=== PATIENT | male | born 1945 | race Hispanic/Latino ===

== ENCOUNTER 2017-05-21 01:18 | Inpatient (IN) | payer MEDICARE ==
[~2017-05-21] VITALS: Ht 162.6 cm; Wt 89.1 kg
[2017-05-21] MEDS ORDERED: ONDANSETRON HCL INJ 2 MG/ML VIAL IV STA (01:50)
[2017-05-21] MEDS ORDERED: PANTOPRAZOLE 40 MG 10ML VIAL IV STA (01:50)
[2017-05-21] MEDS ORDERED: SODIUM CHLORIDE 0.9% 1000ML 1,000 ML IV STA ×2 (01:50→03:25)
[2017-05-21] MEDS ORDERED: DIATRIZOATE MEGL/DIATRIZOA SOD 30 ML BTL PO ONE (02:02)
[2017-05-21 02:03] LABS: BASOPHILS # (AUTO) 0.1 (0.0-0.1); BASOPHILS % 0.4 % (0.0-1.0); EOSINOPHILS % 0.1 % (0.0-6.0); HEMATOCRIT 51.8 % (38.2-49.6); HEMOGLOBIN 17.4 g/dL (14.0-18.0); LYMPHOCYTES # (AUTO) 0.7 (1.0-3.2); LYMPHOCYTES % 4.2 % (18.0-39.1); MEAN CORPUSCULAR HEMOGLOBIN 30.1 pg (28-32); MEAN CORPUSCULAR HGB CONC 33.6 g/dL (31-35); MEAN CORPUSCULAR VOLUME 89.5 fL (81-99); MONOCYTES % 5.9 % (4.4-11.3); PLATELET COUNT 244 x10e3/uL (140-360); RED BLOOD COUNT 5.79 x10e6/uL (4.3-5.7); RED CELL DISTRIBUTION WIDTH 13.4 % (11.7-14.4)
[2017-05-21 02:12] LABS: INR 0.96; PROTHROMBIN TIME 13.3 seconds (11.9-14.5)
[2017-05-21 02:13] LABS: PARTIAL THROMBOPLASTIN TIME 26.7 seconds (23.8-35.5)
[2017-05-21 02:23] LABS: ALBUMIN 4.7 g/dL (3.5-5.0); ALBUMIN/GLOBULIN RATIO 1.1 (0.8-2.0); ANION GAP 20.7 mmol/L (8-16); CALCIUM 10.3 mg/dL (8.4-10.2); CREATININE, SERUM 1.19 mg/dL (0.72-1.25); MAGNESIUM 2.2 MG/DL (1.3-2.1); POTASSIUM 3.7 mmol/L (3.5-5.1)
[2017-05-21 02:30] LABS: CREATINE KINASE MB 4.8 ng/mL (0.00-5.00); TROPONIN I 0.021 ng/mL (0-0.300)
--- NOTE | 2017-05-21 02:34 | Diagnostic Imaging Report ---
EXAM: CHEST SINGLE (PORTABLE), AP 1 view DATE: 05/21/2017 1:50 AM Time stamp on exam: 0159 hours INDICATION: Abdominal pain, shortness of breath COMPARISON: None FINDINGS: LINES/TUBES: None LUNGS: No consolidations or edema. Left lower lobe atelectasis/scarring. PLEURA: No effusions or pneumothorax. Nonspecific elevation of the left hemidiaphragm. HEART AND MEDIASTINUM: Normal size and contour. BONES AND SOFT TISSUES: No acute findings. IMPRESSION: Nonspecific elevation of the left hemidiaphragm. Left lower lobe atelectasis/scarring. Signed by: Dr. Erica Mason M.D. on 05/21/2017 2:31 AM
[2017-05-21 03:16] LABS: KETONES,URINE 1+ (NEGATIVE); LEUKOCYTE ESTERASE ,URINE TRACE (NEGATIVE); NITRITE,URINE NEGATIVE (NEGATIVE); URINE UROBILINOGEN 0.2 mg/dL (0.2 - 1)
[2017-05-21 03:17] LABS: BILIRUBIN,URINE 1+ (NEGATIVE); CLARITY,URINE SL CLOUDY (CLEAR); COLOR,URINE AMBER (YELLOW); PROTEIN,URINE DIPSTICK 1+ (NEGATIVE)
[2017-05-21 03:34] LABS: AMORPHOUS SEDIMENT,URINE FEW (FEW); BACTERIA,URINE FEW /HPF; EPITHELIAL CELLS,URINE RARE /LPF; MUCUS,URINE MANY (RARE); RBC,URINE 0-5 /HPF (0-5)
[2017-05-21] MEDS: PIPER-TAZ 3.375 GM 50 ML IV SCH ×4 (03:45→17:16)
[2017-05-21] MEDS: METRONIDAZOLE 500MG/NS 100ML 100 ML IV SCH ×4 (03:45→18:27)
--- NOTE | 2017-05-21 03:56 | Diagnostic Imaging Report ---
EXAM: CT ABDOMEN AND PELVIS with IV CONTRAST DATE: 05/21/2017 1:50 AM Time stamp on Exam: 0322 hours INDICATION: Abdominal pain, diarrhea COMPARISON: None TECHNIQUE: The abdomen and pelvis were scanned using a multidetector helical scanner. Coronal and sagittal reformations were obtained. Routine protocol performed. IV Contrast: 100 cc Isovue-370 Oral Contrast: Gastrografin CTDIvol has been reviewed. It is below the limits set by the Radiation Protocol Committee (RPC). FINDINGS: LOWER THORAX: No consolidations LIVER: Scattered subcentimeter hypodensities that are too small to characterize BILIARY: The gallbladder is unremarkable. No ductal dilation. SPLEEN: No masses PANCREAS: No masses ADRENALS: Left adrenal gland nodule measuring 2 cm. Normal right adrenal gland. KIDNEYS: Symmetric perfusion. No enhancing masses. No hydronephrosis. Cortical cyst measuring 2 cm in the right kidney interpolar region. Subcentimeter cysts bilaterally. GI TRACT: The stomach is distended. Dilated loops of small bowel. Decompressed distal ileum. Normal appearance of the colon. Normal appendix. Nonspecific radiopaque densities in a small bowel loop, possibly undigested pills. VESSELS: Mild atherosclerotic changes without aneurysm. PERITONEUM/RETROPERITONEUM: No free air or fluid LYMPH NODES: No lymphadenopathy REPRODUCTIVE ORGANS: Unremarkable BLADDER: Unremarkable SOFT TISSUES: Unremarkable BONES: No suspicious bone lesions. IMPRESSION: Distal small bowel obstruction without transition point identified. Indeterminate 2 cm left adrenal gland nodule. If no priors are available for comparison, a nonemergent MRI or CT of the abdomen is recommended with and without IV contrast, adrenal mass protocol. Signed by: Dr. Erica Mason M.D. on 05/21/2017 3:53 AM
[2017-05-21] MEDS ORDERED: BENZOCAINE/TETRACAINE/BUTAMBEN AERO SPRAY 56 GM CAN TOP ONE (04:15)
[2017-05-21] MEDS ORDERED: ONDANSETRON HCL INJ 2 MG/ML VIAL IV PRN (04:30)
[2017-05-21] MEDS ORDERED: MORPHINE SULFATE 2 MG/ML SYR IV PRN (04:30)
[2017-05-21] MEDS: SODIUM CHLORIDE 0.9% 1000ML 1,000 ML IV SCH ×2 (04:53→14:52)
[2017-05-21 05:50] LABS: ABG PH 7.37 (7.31-7.41)
[2017-05-21] MEDS ORDERED: IOPAMIDOL 370 MG/ML 200 ML INFUS..BTL INJ ONE (06:15)
[2017-05-21] MEDS ORDERED: SODIUM CHLORIDE 0.9% 50ML 50 ML ONE (06:15)
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
[2017-05-21] MEDS: FAMOTIDINE 20 MG/2 ML VIAL IV SCH ×2 (08:43→16:51)
[2017-05-21 08:58] LABS: CREATINE KINASE MB 4.1 ng/mL (0.00-5.00); TROPONIN I 0.017 ng/mL (0-0.300)
[2017-05-21 09:17] LABS: CHOL/HDL RATIO 3.1 (3.9-4.7)
[2017-05-21 12:00] VITALS: BP 146/75
[2017-05-21 13:32] VITALS: BP 148/75
[2017-05-21 15:50] LABS: FREE T4 (FREE THYROXINE) 0.94 ng/dL (0.8-1.8); THYROID STIMULATING HORMONE 0.626 uIU/mL (0.350-4.940)
[2017-05-21 16:08] LABS: CREATINE KINASE MB 3.1 ng/mL (0.00-5.00); TROPONIN I 0.021 ng/mL (0-0.300)
[2017-05-21] MEDS: INSULIN LISPRO 100 UNIT/1 ML 3ML VIAL SQ SCH ×2 (16:30→20:30)
--- NOTE | 2017-05-21 16:32 | Consultation ---
DATE OF CONSULTATION: May 21, 2017 ENDOCRINE CONSULTATION Thank you very much for referring this patient. This is a 72-year-old gentleman who is referred to me for new onset hyperglycemia and pain in the abdomen. The patient is not a know diabetic. He does have family history of diabetes. He came to the hospital at this time with a history of abdominal pain which was getting progressively worse. During routine checkup, his blood sugar was found to be more than 250. His BUN and creatinine is elevated. His anion gap is slightly elevated. The patient is a smoker. He used to drink alcohol. He is also status post laparotomy done in the past. PHYSICAL EXAMINATION GENERAL: The patient is alert, awake, a little bit apprehensive. VITAL SIGNS: His heart rate is around 78, blood pressure 140/80 mmHg. HEENT: Essentially unremarkable. NECK: Thyroid is palpable. Clinically, he is near euthyroid. CHEST: Bilateral vesicular breathing. Bilateral bronchospasm. CARDIAC: Both 1st and 2nd heart sounds. There is no 3rd or 4th heart sound. Ejection sound is grade 2/6. ABDOMEN: The patient has slightly distended abdomen and epigastric tenderness. CLINICAL IMPRESSION: 1. Abdominal pain and distension, rule out subacute obstruction, rule out gallbladder disease. 2. New onset hyperglycemia, diabetes mellitus type 2 and chronic smoker. PLAN: The plan at this time is to do a hemoglobin A1c, thyroid function test, lipid profile and put him on a sliding scale insulin now. Thanks for referring this patient. I will be following this patient with you. Job#: [id number]
[2017-05-21] MEDS ORDERED: MORPHINE SULFATE 5 MG/ML VIAL IV PRN (17:00)
[2017-05-21 17:02] VITALS: BP 129/73
[2017-05-21] MEDS: ACETAMINOPHEN 1000 MG/100 ML IV PRN (17:04)
[2017-05-21 20:00] VITALS: BP 124/71
[2017-05-21] MEDS: INSULIN DETEMIR 100 UNIT/ML PEN SQ SCH (21:40)
[2017-05-22] VITALS: BP 119/71
[2017-05-22] MEDS: SODIUM CHLORIDE 0.9% 1000ML 1,000 ML IV SCH ×3 (00:26→12:21)
[2017-05-22] MEDS: METRONIDAZOLE 500MG/NS 100ML 100 ML IV SCH ×4 (00:40→18:39)
[2017-05-22] MEDS: PIPER-TAZ 3.375 GM 50 ML IV SCH ×4 (00:50→18:39)
[2017-05-22] MEDS: ACETAMINOPHEN 1000 MG/100 ML IV PRN ×2 (02:38→12:44)
[2017-05-22 05:09] VITALS: BP 129/73
[2017-05-22] MEDS: INSULIN LISPRO 100 UNIT/1 ML 3ML VIAL SQ SCH ×4 (07:30→21:00)
[2017-05-22 08:17] LABS: BASOPHILS % 0.4 % (0.0-1.0); EOSINOPHILS # (AUTO) 0.1 (0.0-0.4); EOSINOPHILS % 1.2 % (0.0-6.0); HEMATOCRIT 39.2 % (38.2-49.6); HEMOGLOBIN 12.8 g/dL (14.0-18.0); LYMPHOCYTES # (AUTO) 1.5 (1.0-3.2); LYMPHOCYTES % 20.3 % (18.0-39.1); MEAN CORPUSCULAR HGB CONC 32.7 g/dL (31-35); MONOCYTES # (AUTO) 0.7 (0.2-0.8); MONOCYTES % 9.5 % (4.4-11.3); NEUTROPHILS # (AUTO) 5.2 (2.1-6.9); NEUTROPHILS % 68.2 % (38.7-80.0); PLATELET COUNT 182 x10e3/uL (140-360); RED BLOOD COUNT 4.26 x10e6/uL (4.3-5.7); RED CELL DISTRIBUTION WIDTH 13.8 % (11.7-14.4)
[2017-05-22] MEDS: FAMOTIDINE 20 MG/2 ML VIAL IV SCH ×2 (08:27→17:20)
[2017-05-22 08:34] VITALS: BP 131/67
[2017-05-22 08:44] LABS: ALANINE AMINOTRANSFERASE 17 IU/L (0-55); ALBUMIN 2.8 g/dL (3.5-5.0); ALKALINE PHOSPHATASE 48 IU/L (40-150); ANION GAP 8.5 mmol/L (8-16); BLOOD UREA NITROGEN 19 mg/dL (7-26); BUN/CREATININE RATIO 22 (6-25); CALCIUM 7.8 mg/dL (8.4-10.2); CARBON DIOXIDE 25 mmol/L (22-29); CHLORIDE 112 mmol/L (98-107); CREATININE, SERUM 0.88 mg/dL (0.72-1.25); EST GLOMERULAR FILTRATION RATE > 60 ML/MIN (60-); GLUCOSE 106 mg/dL (74-118); POTASSIUM 3.5 mmol/L (3.5-5.1); SODIUM 142 mmol/L (136-145)
--- NOTE | 2017-05-22 09:32 | Diagnostic Imaging Report ---
EXAM: ABDOMEN ACUTE SERIES W/PA CXR DATE: 05/22/2017 8:00 AM INDICATION: Small bowel obstruction COMPARISON: None FINDINGS: Chest: NG tube present with side holes below the GE junction. There is prominence of the aorta. Elevation of the left hemidiaphragm and patchy opacities in the left lung base present. There is no pneumothorax. No obvious pneumoperitoneum identified. Dilated loops of small bowel present measuring up to 51 mm in the left upper quadrant. Degenerative changes in the spine and hips present. IMPRESSION: Dilated loops of small bowel consistent with small bowel obstruction, corresponding with 05/21/2017 CT. Patchy opacity left lung base could represent atelectasis or pneumonia. Signed by: Dr. John Leon MD on 05/22/2017 9:29 AM
[2017-05-22] MEDS ORDERED: BISACODYL 10 MG SUPP PR ONE (11:00)
[2017-05-22 14:26] VITALS: BP 134/80
[2017-05-22 17:50] VITALS: BP 129/74
[2017-05-22 20:00] VITALS: BP 139/71
[2017-05-22] MEDS: INSULIN DETEMIR 100 UNIT/ML PEN SQ SCH (21:28)
[2017-05-23] VITALS: BP 125/8
[2017-05-23] MEDS: METRONIDAZOLE 500MG/NS 100ML 100 ML IV SCH ×3 (00:02→11:50)
[2017-05-23] MEDS: PIPER-TAZ 3.375 GM 50 ML IV SCH ×3 (00:45→13:07)
[2017-05-23] MEDS: SODIUM CHLORIDE 0.9% 1000ML 1,000 ML IV SCH ×2 (01:12→13:07)
[2017-05-23 04:00] VITALS: BP 110/69
[2017-05-23] MEDS ORDERED: COLACE100 MG PO (06:24)
[2017-05-23] MEDS ORDERED: KEFLEX500 MG PO (06:24)
[2017-05-23] MEDS ORDERED: Insulin Detemir SQ (06:24)
[2017-05-23] MEDS ORDERED: FLAGYL500 MG PO (06:24)
[2017-05-23] MEDS ORDERED: SENNOSIDES8.6 MG PO (06:24)
[2017-05-23] MEDS ORDERED: PEPCID20 MG PO (06:24)
[2017-05-23] MEDS: INSULIN LISPRO 100 UNIT/1 ML 3ML VIAL SQ SCH ×3 (07:30→16:30)
[2017-05-23 08:20] VITALS: BP 136/82
[2017-05-23] MEDS: FAMOTIDINE 20 MG/2 ML VIAL IV SCH (08:40)
[2017-05-23 12:41] LABS: BASOPHILS % 0.4 % (0.0-1.0); EOSINOPHILS # (AUTO) 0.1 (0.0-0.4); EOSINOPHILS % 1.1 % (0.0-6.0); HEMATOCRIT 39.3 % (38.2-49.6); HEMOGLOBIN 12.9 g/dL (14.0-18.0); LYMPHOCYTES # (AUTO) 1.9 (1.0-3.2); LYMPHOCYTES % 23.3 % (18.0-39.1); MEAN CORPUSCULAR HEMOGLOBIN 30.2 pg (28-32); MEAN CORPUSCULAR HGB CONC 32.8 g/dL (31-35); MONOCYTES # (AUTO) 0.7 (0.2-0.8); MONOCYTES % 8.9 % (4.4-11.3); NEUTROPHILS # (AUTO) 5.4 (2.1-6.9); NEUTROPHILS % 66.1 % (38.7-80.0); PLATELET COUNT 185 x10e3/uL (140-360); RED BLOOD COUNT 4.27 x10e6/uL (4.3-5.7); RED CELL DISTRIBUTION WIDTH 13.4 % (11.7-14.4)
--- NOTE | 2017-05-23 12:54 | Progress Note ---
DATE: May 22, 2017 MEDICINE PROGRESS NOTE TIME OF SERVICE: 7:15 a.m. SUBJECTIVE: Overnight no events. He has NG tube. REVIEW OF SYSTEMS: Denies any dizziness. VITAL SIGNS: Reviewed. PHYSICAL EXAMINATION GENERAL APPEARANCE: A tired-appearing man resting in bed. NG tube in place. CARDIOVASCULAR: Normal S1/S2. LUNGS: He has moderate breath sounds. ABDOMEN: Soft, nondistended. He has mild tenderness in the left abdomen. EXTREMITIES: No edema. SKIN: Dry. PSYCHIATRIC: Normal affect. LABS: Reviewed. MEDICATIONS: Reviewed. ASSESSMENT: A 72-year-old man. 1. Small-bowel obstruction. Nasogastric tube in place. 2. Urinary tract infection. 3. Left adrenal nodule 2 cm. 4. Obesity with body mass index 34.7. 5. Hyperglycemia. 6. Hypercalcemia. 7. Dehydration. PLAN 1. Continue NG tube. 2. Continue antibiotics and follow up cultures. 3. Left adrenal nodule. Will follow up Endocrinology recommendation. 4. Follow up hemoglobin A1c and lipid panel. 5. Rehydrate patient and ambulate. Job#: [id number] EV
[2017-05-23 12:57] LABS: BLOOD UREA NITROGEN 9 mg/dL (7-26); BUN/CREATININE RATIO 11 (6-25); CALCIUM 8.4 mg/dL (8.4-10.2); CARBON DIOXIDE 25 mmol/L (22-29); CHLORIDE 128 mmol/L (98-107); CREATININE, SERUM 0.81 mg/dL (0.72-1.25); EST GLOMERULAR FILTRATION RATE > 60 ML/MIN (60-); GLUCOSE 87 mg/dL (74-118); POTASSIUM 3.8 mmol/L (3.5-5.1)
--- NOTE | 2017-05-23 13:06 | Progress Note ---
DATE: May 23, 2017 MEDICINE PROGRESS NOTE TIME OF SERVICE: 6:20 a.m. SUBJECTIVE: Overnight no pain. NG tube has since been removed. Patient has had 2 bowel movements. REVIEW OF SYSTEMS: Denies any dizziness, chest pain. VITAL SIGNS: Reviewed. PHYSICAL EXAMINATION GENERAL APPEARANCE: A tired-appearing man resting in bed. HEENT: Anicteric. CARDIOVASCULAR: Normal S1/S2. LUNGS: Moderate breath sounds. ABDOMEN: Soft, nontender, nondistended. EXTREMITIES: No edema. SKIN: Dry. PSYCHIATRIC: Normal affect. LABS: Reviewed. MEDICATIONS: Reviewed. ASSESSMENT: A 72-year-old man. 1. Small-bowel obstruction. 2. Urinary tract infection. 3. Left adrenal nodule 2 cm. 4. Obesity with body mass index 34.7. 5. Hyperglycemia. 6. Hypercalcemia. 7. Dehydration. PLAN 1. NG tube is out. Patient is having bowel movements. Follow up labs this morning. 2. Leukocytosis has resolved. 3. Hemoglobin A1c is 5.7, LDL 59 and triglycerides 66. 4. All cultures remain negative. 5. He remains on Zosyn and Flagyl. 6. Discharge planning. Obtain labs this morning. Follow up outpatient with Dr. Bain of endocrinology. Job#: [id number] EV
--- NOTE | 2017-05-23 13:14 | Discharge Summary ---
PRINCIPAL DIAGNOSES 1. Small-bowel obstruction. 2. Urinary tract infection, culture negative. 3. Left adrenal nodule 2 cm. 4. Obesity with body mass index 34.7. 5. Newly diagnosed diabetes mellitus type 2. 6. Hypercalcemia. 7. Dehydration. SECONDARY DIAGNOSIS: Hypertension. CHIEF COMPLAINT: Abdominal pain. HISTORY OF PRESENT ILLNESS: A 72-year-old man with abdominal pain. Please refer to the H\T\P for further details. HOSPITAL COURSE: Patient was found to have a small-bowel obstruction. NG tube was placed, has since been removed and had multiple bowel movements. Had a urinary tract infection, culture negative, treated with antibiotics. He will be discharged home on Keflex. He had left adrenal nodule 2 cm. Will follow up outpatient with Endocrinology for further care. Obesity and hypercalcemia, his hemoglobin A1c is 5.7 now. He has prediabetes. He will be discharged home with metformin, and he will need to follow up with Dr. Bain of endocrinology. He is doing better. With also be discharged home with bowel regimen. Patient is doing well currently, appropriate for discharge once cleared by Surgery. DISCHARGE MEDICATIONS: Per electronic medical records. FOLLOWUP 1. Primary care doctor in [address] Bain in 2 weeks. CONDITION ON DISCHARGE: Stable and improving. DISCHARGE LOCATION: Home. HANNAH CRYSTAL MD Job#: [id number] EV
[2017-05-23 13:16] LABS: ANION GAP -5.2 mmol/L (8-16); SODIUM 144 mmol/L (136-145)
[2017-05-23 13:25] VITALS: BP 144/74
[2017-05-23 16:39] VITALS: BP 142/77
== END 2017-05-23 17:15 | disposition home or self-care (01) | DRG 389 ==
LOC: ER 01:18 → ERHOLD 05:17 → MED/SURG 12:12
PROVIDERS: ADMIT Internal Medicine; ATTEND Internal Medicine
DX: K56.51 Intestinal adhesions [bands], with partial obstruction (principal); N39.0 Urinary tract infection, site not specified; E11.65 Type 2 diabetes mellitus with hyperglycemia; E83.52 Hypercalcemia; E86.0 Dehydration; E66.9 Obesity, unspecified; Z68.34 Body mass index [BMI] 34.0-34.9, adult; E27.9 Disorder of adrenal gland, unspecified; Z79.4 Long term (current) use of insulin; F17.200 Nicotine dependence, unspecified, uncomplicated
CPT/HCPCS: 36415; 36600; 71010; 74022; 74177; 80048; 80053; 80061; 81001; 82150; 82550; 82553; 82805; 82948; 83036; 83605; 83690; 83735; 84439; 84443; 84484; 85025; 85610; 85730; 87040; 87086; 93005; 99285; J2405; J2543; J7030; Q9967

== ENCOUNTER 2017-05-31 21:15 | Inpatient (IN) | payer MEDICARE ==
[~2017-05-31] VITALS: Ht 162.6 cm; Wt 88.9 kg
[~2017-05-31 21:15] MED LIST: COLACE100 MG PO; FLAGYL500 MG PO; Insulin Detemir SQ; KEFLEX500 MG PO; PEPCID20 MG PO; SENNOSIDES8.6 MG PO
[2017-05-31] MEDS ORDERED: ONDANSETRON HCL INJ 2 MG/ML VIAL IV STA (21:47)
[2017-05-31] MEDS ORDERED: PANTOPRAZOLE 40 MG 10ML VIAL IV STA (21:47)
[2017-05-31 22:33] LABS: BASOPHILS # (AUTO) 0.1 (0.0-0.1); BASOPHILS % 0.4 % (0.0-1.0); EOSINOPHILS # (AUTO) 0.1 (0.0-0.4); EOSINOPHILS % 0.6 % (0.0-6.0); HEMATOCRIT 48.9 % (38.2-49.6); HEMOGLOBIN 16.3 g/dL (14.0-18.0); LYMPHOCYTES # (AUTO) 1.2 (1.0-3.2); LYMPHOCYTES % 7.6 % (18.0-39.1); MEAN CORPUSCULAR HEMOGLOBIN 29.7 pg (28-32); MEAN CORPUSCULAR HGB CONC 33.3 g/dL (31-35); MEAN CORPUSCULAR VOLUME 89.2 fL (81-99); MONOCYTES # (AUTO) 0.8 (0.2-0.8); MONOCYTES % 4.7 % (4.4-11.3); NEUTROPHILS # (AUTO) 13.8 (2.1-6.9); NEUTROPHILS % 86.2 % (38.7-80.0); PLATELET COUNT 298 x10e3/uL (140-360); RED BLOOD COUNT 5.48 x10e6/uL (4.3-5.7); RED CELL DISTRIBUTION WIDTH 13.3 % (11.7-14.4)
[2017-05-31 22:39] LABS: BILIRUBIN,URINE NEGATIVE (NEGATIVE); CLARITY,URINE CLEAR (CLEAR); COLOR,URINE AMBER (YELLOW); KETONES,URINE NEGATIVE (NEGATIVE); LEUKOCYTE ESTERASE ,URINE 1+ (NEGATIVE); NITRITE,URINE NEGATIVE (NEGATIVE); URINE UROBILINOGEN 0.2 mg/dL (0.2 - 1)
[2017-05-31 22:40] LABS: PROTEIN,URINE DIPSTICK 1+ (NEGATIVE)
[2017-05-31 22:45] LABS: INR 0.96; PROTHROMBIN TIME 13.3 seconds (11.9-14.5)
[2017-05-31 22:46] LABS: PARTIAL THROMBOPLASTIN TIME 30.1 seconds (23.8-35.5)
[2017-05-31 22:50] LABS: BACTERIA,URINE RARE /HPF; EPITHELIAL CELLS,URINE FEW /LPF; MUCUS,URINE FEW (RARE)
[2017-05-31 22:56] LABS: ALANINE AMINOTRANSFERASE 24 IU/L (0-55); ALBUMIN/GLOBULIN RATIO 1.1 (0.8-2.0); ALKALINE PHOSPHATASE 63 IU/L (40-150); ANION GAP 12.6 mmol/L (8-16); BLOOD UREA NITROGEN 20 mg/dL (7-26); BUN/CREATININE RATIO 21 (6-25); CALCIUM 9.5 mg/dL (8.4-10.2); CARBON DIOXIDE 26 mmol/L (22-29); CHLORIDE 100 mmol/L (98-107); CREATINE KINASE 140 IU/L (30-200); CREATININE, SERUM 0.96 mg/dL (0.72-1.25); EST GLOMERULAR FILTRATION RATE > 60 ML/MIN (60-); GLUCOSE 173 mg/dL (74-118); LIPASE 25 U/L (8-78); MAGNESIUM 1.7 MG/DL (1.3-2.1); POTASSIUM 3.6 mmol/L (3.5-5.1); SODIUM 135 mmol/L (136-145); TROPONIN I 0.015 ng/mL (0-0.300)
--- NOTE | 2017-05-31 23:46 | Diagnostic Imaging Report ---
EXAMINATION: CHEST 2 VIEWS INDICATION: Abdominal pain. COMPARISON: 05/22/2017 and 05/21/2017 FINDINGS: TUBES and LINES: None. LUNGS: Lungs are not well inflated. There are bibasilar atelectasis. There is no evidence of pneumonia or pulmonary edema. PLEURA: No pleural effusion or pneumothorax. HEART AND MEDIASTINUM: The cardiomediastinal silhouette is remarkable for elevation of the left hemidiaphragm with prominent air-fluid level in the stomach fundus.. BONES AND SOFT TISSUES: No acute osseous lesion. Soft tissues are unremarkable. UPPER ABDOMEN: No free air under the diaphragm. IMPRESSION: No acute thoracic abnormality. Signed by: Dr. Manjeet Ferraro M.D. on 05/31/2017 11:43 PM
--- NOTE | 2017-05-31 23:49 | Diagnostic Imaging Report ---
EXAM: ABDOMEN COMP INCL UPR or DECUB DATE: 05/31/2017 9:47 PM Time stamp on exam: 2304 hours INDICATION: Abdominal pain COMPARISON: 05/22/2017 and 05/21/2017 FINDINGS: LINES/TUBES: None BOWEL PATTERN: Multiple small bowel loops appear dilated in the upper abdomen region 6 cm in diameter. The stomach is distended with air and fluid. The lower abdomen does not demonstrate distended hollow viscus SOFT TISSUES: No abnormal calcifications. No mass effect. LUNG BASES: Not included BONES: Degenerative changes of the lumbar spine. IMPRESSION: Findings are compatible with progressive small bowel obstruction. Signed by: Dr. Manjeet Ferraro M.D. on 05/31/2017 11:45 PM
[2017-06-01] MEDS ORDERED: DIATRIZOATE MEGL/DIATRIZOA SOD 30 ML BTL PO ONE ×2 (00:29→00:30)
[2017-06-01] MEDS ORDERED: MORPHINE SULFATE 2 MG/ML SYR IV STA (00:42)
[2017-06-01] MEDS ORDERED: ONDANSETRON HCL INJ 2 MG/ML VIAL IV STA (00:42)
[2017-06-01] MEDS ORDERED: PANTOPRAZOLE 40 MG 10ML VIAL IV STA (00:42)
[2017-06-01] MEDS ORDERED: PIPER-TAZ 3.375 GM 50 ML IV SCH (00:45)
[2017-06-01] MEDS ORDERED: BENZOCAINE/TETRACAINE/BUTAMBEN AERO SPRAY 56 GM CAN TOP ONE (00:45)
[2017-06-01] MEDS ORDERED: SODIUM CHLORIDE 0.9% 1000ML 1,000 ML IV STA (00:47)
[2017-06-01] MEDS ORDERED: PIPERACILLIN/TAZO 4.5 GM 100 ML IV ONE (01:15)
[2017-06-01] MEDS: PIPER-TAZ 3.375 GM 50 ML IV SCH ×4 (02:06→23:31)
--- NOTE | 2017-06-01 02:08 | Diagnostic Imaging Report ---
EXAM: CT Abdomen and Pelvis WITH contrast INDICATION: Abdominal pain, small bowel obstruction COMPARISON: 05/21/2017 and 05/22/2017 TECHNIQUE: Abdomen and pelvis were scanned utilizing a multidetector helical scanner from the lung base to the pubic symphysis after administration of IV contrast. Coronal and sagittal reformations were obtained. Routine protocol was performed. Scan was performed when during portal venous phase. IV CONTRAST: 100 mL of Isovue-370 ORAL CONTRAST: Gastrografin RADIATION DOSE: Total DLP: 653.34 mGy*cm Estimated effective dose: (DLP x 0.015 x size factor) mSv COMPLICATIONS: None FINDINGS: LINES and TUBES: None. LOWER THORAX: Unremarkable HEPATOBILIARY: No focal hepatic lesions. No biliary ductal dilation. GALLBLADDER: No radio-opaque stones or sludge. No wall thickening. SPLEEN: No splenomegaly. PANCREAS: No focal masses or ductal dilatation. ADRENALS: No adrenal nodules KIDNEYS/URETERS: Kidneys enhance symmetrically. No hydronephrosis. No cystic or solid mass lesions. No stones. GI TRACT: There is distention of the stomach, and small bowel, partially opacified by oral contrast. There is a transition point at the terminal ileum best seen on coronal image 51. Several peripherally calcified, centrally lucent stones noted in the GI tract without evidence of typical stone ileus. The calcifications measure between 1.6 and 1.1 cm best seen in the left small bowel. The colon is decompressed. Appendix is normal. PELVIC ORGANS/BLADDER: Unremarkable. LYMPH NODES: No lymphadenopathy. VESSELS: There is mild atherosclerotic disease in the aorta and major arterial branches. PERITONEUM / RETROPERITONEUM: There is moderate of amount of free pelvic and abdominal fluid. BONES: Unremarkable. SOFT TISSUES: Unremarkable. IMPRESSION: 1. Findings are compatible with small bowel obstruction and ileus within the right lower quadrant. Correlate for prior surgical history. Adhesions is suspected. 2. Multiple calcific densities in the small bowel are indeterminate but suspicious of biliary origin. Signed by: Dr. Manjeet Ferraro M.D. on 06/01/2017 2:05 AM
[2017-06-01] MEDS ORDERED: MORPHINE SULFATE 2 MG/ML SYR IV PRN (02:15)
[2017-06-01] MEDS: SODIUM CHLORIDE 0.9% 1000ML 1,000 ML IV SCH ×3 (03:28→21:43)
[2017-06-01] MEDS ORDERED: IOPAMIDOL 370 MG/ML 200 ML INFUS..BTL INJ ONE (06:29)
[2017-06-01] MEDS ORDERED: SODIUM CHLORIDE 0.9% 50ML 50 ML ONE (06:29)
[2017-06-01] MEDS: ONDANSETRON HCL INJ 2 MG/ML VIAL IV PRN ×2 (09:30→21:02)
[2017-06-01] MEDS: INSULIN REGULAR, HUMAN 100 UNIT/1 ML 3ML VIAL SQ SCH ×3 (10:59→20:44)
[2017-06-01] MEDS ORDERED: DEXTROSE 50% SYRINGE 50 ML IV PRN (11:00)
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
[2017-06-01] MEDS ORDERED: MORPHINE SULFATE 5 MG/ML VIAL IV PRN (13:30)
[2017-06-01] MEDS: FAMOTIDINE 20 MG/2 ML VIAL IV SCH (18:14)
[2017-06-01 20:40] VITALS: BP 155/91
[2017-06-01 20:45] VITALS: BP 155/91
[2017-06-01] MEDS: DOCUSATE SODIUM 100 MG CAP PO SCH (21:00)
[2017-06-01] MEDS: SENNOSIDES 8.6 MG TAB PO SCH (21:41)
[2017-06-02] MEDS: SODIUM CHLORIDE 0.9% 1000ML 1,000 ML IV SCH ×3 (05:58→19:02)
[2017-06-02] MEDS: PIPER-TAZ 3.375 GM 50 ML IV SCH ×3 (05:58→17:22)
[2017-06-02 06:00] LABS: BASOPHILS % 0.6 % (0.0-1.0); EOSINOPHILS # (AUTO) 0.2 (0.0-0.4); EOSINOPHILS % 2.9 % (0.0-6.0); HEMATOCRIT 39.5 % (38.2-49.6); LYMPHOCYTES % 31.6 % (18.0-39.1); MEAN CORPUSCULAR HEMOGLOBIN 30.1 pg (28-32); MEAN CORPUSCULAR HGB CONC 32.9 g/dL (31-35); MEAN CORPUSCULAR VOLUME 91.4 fL (81-99); MONOCYTES # (AUTO) 0.4 (0.2-0.8); MONOCYTES % 6.7 % (4.4-11.3); NEUTROPHILS # (AUTO) 3.7 (2.1-6.9); NEUTROPHILS % 57.9 % (38.7-80.0); PLATELET COUNT 224 x10e3/uL (140-360); RED BLOOD COUNT 4.32 x10e6/uL (4.3-5.7); RED CELL DISTRIBUTION WIDTH 13.3 % (11.7-14.4)
[2017-06-02 06:29] LABS: ALANINE AMINOTRANSFERASE 14 IU/L (0-55); ALBUMIN 2.9 g/dL (3.5-5.0); ALKALINE PHOSPHATASE 44 IU/L (40-150); ANION GAP 9.8 mmol/L (8-16); BLOOD UREA NITROGEN 11 mg/dL (7-26); BUN/CREATININE RATIO 13 (6-25); CALCIUM 8.2 mg/dL (8.4-10.2); CARBON DIOXIDE 25 mmol/L (22-29); CHLORIDE 111 mmol/L (98-107); CREATININE, SERUM 0.82 mg/dL (0.72-1.25); EST GLOMERULAR FILTRATION RATE > 60 ML/MIN (60-); GLUCOSE 96 mg/dL (74-118); POTASSIUM 3.8 mmol/L (3.5-5.1); SODIUM 142 mmol/L (136-145)
--- NOTE | 2017-06-02 06:58 | Diagnostic Imaging Report ---
EXAM: ABDOMEN COMP INCL UPR or DECUB DATE: 06/02/2017 6:00 AM Time stamp on exam: 6:26 AM INDICATION: Small bowel obstruction COMPARISON: 06/01/2017 CT of the abdomen and pelvis FINDINGS: LINES/TUBES: NG tube visualized with tip overlying the left upper quadrant. BOWEL PATTERN: No evidence for obstruction. Oral contrast opacifies the proximal colon SOFT TISSUES: No abnormal calcifications. No mass effect. LUNG BASES: Not included BONES: Degenerative changes of the thoracolumbar spine IMPRESSION: Nonobstructive bowel gas pattern. Signed by: Dr. Manjeet Ferraro M.D. on 06/02/2017 6:54 AM
[2017-06-02] MEDS: INSULIN REGULAR, HUMAN 100 UNIT/1 ML 3ML VIAL SQ SCH ×4 (07:30→21:00)
[2017-06-02 08:00] VITALS: BP 164/82
--- NOTE | 2017-06-02 08:42 | Progress Note ---
DATE: June 02, 2017 TIME: 7:40 a.m. OVERNIGHT: No events. He remains with NG tube. No flatus. No bowel movement. REVIEW OF SYSTEMS: Denies any dizziness. PHYSICAL EXAMINATION VITAL SIGNS: Reviewed. GENERAL: A tired-appearing man resting in bed. HEENT: Anicteric. He has an NG tube in place. CARDIOVASCULAR: Normal S1 and S2. LUNGS: Moderate breath sounds. ABDOMEN: Soft, nontender and nondistended. EXTREMITIES: No edema. SKIN: Dry. PSYCHIATRIC: Normal affect. LABS: Reviewed. MEDICATIONS: Reviewed. ASSESSMENT: A 72-year-old man with: 1. Small-bowel obstruction. 2. Urinary tract infection. 3. Constipation. 4. Diabetes mellitus, type 2: Hemoglobin A1c 5.7, LDL 59. PLAN 1. Leukocytosis has resolved. 2. Patient remains with NG tube. Still no flatus. No bowel movement. Continue physical therapy and ambulation. 3. Follow up urine culture. Continue IV Zosyn. 4. Continue IV fluids. 5. Continue Pepcid and add Lovenox prophylactically. 6. Await return of bowel function. Surgical team on board. Job#: [id number] MS
[2017-06-02] MEDS: SENNOSIDES 8.6 MG TAB PO SCH ×2 (08:52→20:55)
[2017-06-02] MEDS: DOCUSATE SODIUM 100 MG CAP PO SCH ×2 (08:52→20:55)
[2017-06-02] MEDS: FAMOTIDINE 20 MG/2 ML VIAL IV SCH ×2 (09:10→17:22)
[2017-06-02 09:48] VITALS: BP 164/82
[2017-06-02 11:52] VITALS: BP 151/67
[2017-06-02 16:00] VITALS: BP 135/66
[2017-06-02] MEDS: ENOXAPARIN SOD INJ 40 MG/0.4 ML SYR SC SCH (17:22)
[2017-06-02 20:00] VITALS: BP 148/86
[2017-06-03] VITALS (7 sets, daily range): BP systolic 131–155; BP diastolic 79–91
[2017-06-03] MEDS: PIPER-TAZ 3.375 GM 50 ML IV SCH ×5 (00:45→23:34)
[2017-06-03] MEDS: SODIUM CHLORIDE 0.9% 1000ML 1,000 ML IV SCH ×3 (03:48→17:00)
[2017-06-03] MEDS: INSULIN REGULAR, HUMAN 100 UNIT/1 ML 3ML VIAL SQ SCH ×4 (07:30→20:28)
--- NOTE | 2017-06-03 08:10 | Progress Note ---
DATE: June 03, 2017 TIME: 7:43 a.m. OVERNIGHT: Patient's NG tube was removed. Patient passing flatus. REVIEW OF SYSTEMS: Denies any dizziness. PHYSICAL EXAMINATION VITAL SIGNS: Reviewed. GENERAL: A tired-appearing man resting in bed. HEENT: Anicteric. CARDIOVASCULAR: Normal S1/S2. LUNGS: Moderate breath sounds. ABDOMEN: Soft, nontender, nondistended. EXTREMITIES: No edema. SKIN: Dry. PSYCHIATRIC: Normal affect. LABS: Reviewed. MEDICATIONS: Reviewed. ASSESSMENT: A 72-year-old man with 1. Small-bowel obstruction. 2. Urinary tract infection. 3. Constipation. 4. Diabetes mellitus, type 2: Hemoglobin A1c 5.7, LDL 59. 5. Urinary tract infection. PLAN 1. Continue ambulation. 2. Continue bowel regimen. 3. Continue antibiotics. 4. Continue Pepcid, Lovenox. 5. Await return of bowel function. 6. Leukocytosis has resolved. 7. Follow up cultures. 8. Continue IV Zosyn. 9. Follow up urinary tract infection. Job#: [id number] CQ
[2017-06-03] MEDS: FAMOTIDINE 20 MG/2 ML VIAL IV SCH ×2 (08:46→17:00)
[2017-06-03] MEDS: SENNOSIDES 8.6 MG TAB PO SCH ×2 (08:46→20:00)
[2017-06-03] MEDS: DOCUSATE SODIUM 100 MG CAP PO SCH ×2 (08:46→20:00)
[2017-06-03] MEDS: ENOXAPARIN SOD INJ 40 MG/0.4 ML SYR SC SCH (17:00)
[2017-06-04 00:42] VITALS: BP 140/78
[2017-06-04] MEDS: PIPER-TAZ 3.375 GM 50 ML IV SCH (05:42)
[2017-06-04 05:52] VITALS: BP 149/98
[2017-06-04] MEDS ORDERED: COLACE100 MG PO (07:09)
[2017-06-04] MEDS ORDERED: SENNOSIDES8.6 MG PO (07:09)
[2017-06-04] MEDS: INSULIN REGULAR, HUMAN 100 UNIT/1 ML 3ML VIAL SQ SCH (07:30)
--- NOTE | 2017-06-04 07:59 | Discharge Summary ---
PRINCIPAL DIAGNOSES 1. Small-bowel obstruction. 2. Urinary tract infection. 3. Constipation. 4. Diabetes mellitus type 2, hemoglobin A1c 5.7, low-density lipoprotein 59. SECONDARY DIAGNOSIS: Diabetes mellitus type 2. CHIEF COMPLAINT: Unable to have bowel movement. HISTORY OF PRESENT ILLNESS: This is a 72-year-old man who developed recurrent episode of small-bowel obstruction. Therefore came to the hospital. Please refer to the H and P for further details. HOSPITAL COURSE: Patient was found to have a small-bowel obstruction, urinary tract infection, and constipation. He received bowel regimen, had 2 bowel movements. His NG tube has since been removed. He is doing well and is symptom free. Currently appropriate for discharge with followup. He was also found to have urinary tract infection. DISCHARGE MEDICATION: Per electronic medical record. FOLLOWUP 1. Primary care doctor in 1 week. 2. Follow up with surgeon as directed. CONDITION ON DISCHARGE: Stable and improved. DISCHARGE LOCATION: Home with Augmentin and bowel regimen. HANNAH CRYSTAL MD Job#: [id number] CF
[2017-06-04 08:00] VITALS: BP 162/92
[2017-06-04 08:39] LABS: MAGNESIUM 1.8 MG/DL (1.3-2.1); PHOSPHORUS 2.5 MG/DL (2.3-4.7); POTASSIUM 3.8 mmol/L (3.5-5.1)
[2017-06-04] MEDS: FAMOTIDINE 20 MG/2 ML VIAL IV SCH (08:49)
[2017-06-04] MEDS: SENNOSIDES 8.6 MG TAB PO SCH (08:49)
[2017-06-04] MEDS: DOCUSATE SODIUM 100 MG CAP PO SCH (08:49)
[2017-06-04] MEDS ORDERED: HYDRALAZINE HCL 25 MG TAB PO ONE (10:00)
[2017-06-04] MEDS ORDERED: HYDRALAZINE HCL 25 MG TAB PO SCH (12:00)
== END 2017-06-04 11:35 | disposition home or self-care (01) | DRG 389 ==
LOC: ER 21:15 → ERHOLD 06-01 02:31 → MED/SURG2 06-01 20:16
PROVIDERS: ADMIT Internal Medicine; ATTEND Internal Medicine
DX: K56.609 Unspecified intestinal obstruction, unspecified as to partial versus complete obstruction (principal); N39.0 Urinary tract infection, site not specified; E11.8 Type 2 diabetes mellitus with unspecified complications; K56.41 Fecal impaction; E66.9 Obesity, unspecified; Z68.34 Body mass index [BMI] 34.0-34.9, adult; F17.210 Nicotine dependence, cigarettes, uncomplicated; Z79.4 Long term (current) use of insulin
CPT/HCPCS: 36415; 71020; 74020; 74177; 80053; 81001; 82550; 82553; 82948; 83690; 83735; 84100; 84132; 84484; 85025; 85610; 85730; 87086; 93005; 99284; J1650; J2270; J2405; J2543; J7030; Q9967

== ENCOUNTER 2017-06-04 23:31 | Inpatient (IN) | payer MEDICARE ==
[~2017-06-04] VITALS: Ht 162.6 cm; Wt 88.5 kg
[2017-06-05] VITALS (8 sets, daily range): BP systolic 130–177; BP diastolic 82–97
[2017-06-05 00:11] LABS: BASOPHILS % 0.4 % (0.0-1.0); EOSINOPHILS # (AUTO) 0.2 (0.0-0.4); EOSINOPHILS % 1.6 % (0.0-6.0); HEMATOCRIT 44.7 % (38.2-49.6); HEMOGLOBIN 14.9 g/dL (14.0-18.0); LYMPHOCYTES # (AUTO) 1.7 (1.0-3.2); LYMPHOCYTES % 17.1 % (18.0-39.1); MEAN CORPUSCULAR HEMOGLOBIN 29.4 pg (28-32); MEAN CORPUSCULAR HGB CONC 33.3 g/dL (31-35); MEAN CORPUSCULAR VOLUME 88.2 fL (81-99); MONOCYTES # (AUTO) 0.6 (0.2-0.8); MONOCYTES % 6.1 % (4.4-11.3); NEUTROPHILS # (AUTO) 7.4 (2.1-6.9); NEUTROPHILS % 74.5 % (38.7-80.0); PLATELET COUNT 275 x10e3/uL (140-360); RED BLOOD COUNT 5.07 x10e6/uL (4.3-5.7)
[2017-06-05 00:24] LABS: ALANINE AMINOTRANSFERASE 15 IU/L (0-55); ALBUMIN 3.7 g/dL (3.5-5.0); ALBUMIN/GLOBULIN RATIO 1.1 (0.8-2.0); ALKALINE PHOSPHATASE 51 IU/L (40-150); AMYLASE 51 U/L (25-125); ANION GAP 14.6 mmol/L (8-16); BLOOD UREA NITROGEN 8 mg/dL (7-26); BUN/CREATININE RATIO 10 (6-25); CARBON DIOXIDE 21 mmol/L (22-29); CHLORIDE 109 mmol/L (98-107); CREATININE, SERUM 0.79 mg/dL (0.72-1.25); EST GLOMERULAR FILTRATION RATE > 60 ML/MIN (60-); GLUCOSE 110 mg/dL (74-118); LIPASE 22 U/L (8-78); POTASSIUM 3.6 mmol/L (3.5-5.1); SODIUM 141 mmol/L (136-145)
--- NOTE | 2017-06-05 00:40 | Diagnostic Imaging Report ---
EXAM: ABDOMEN ACUTE SERIES W/PA CXR DATE: 06/04/2017 11:47 PM Time stamp on exam: INDICATION: Abdominal pain, history of small bowel obstruction COMPARISON: CT of the abdomen 06/01/2017 FINDINGS: LINES/TUBES: None BOWEL PATTERN: There is distention of the stomach with air-fluid levels on standing position. No evidence of small bowel or large bowel obstruction. SOFT TISSUES: Previously noted calcifications in the gut are still present and overlying the left iliac wing.. No mass effect. LUNGS: The lungs are clear. Minimal left lung base atelectasis with elevation of the left hemidiaphragm. No cardiac megaly, pneumothorax or pulmonary edema. Small left apical calcified granuloma. BONES: Degenerative changes of the thoracolumbar spine. IMPRESSION: Findings are suspicious for proximal small bowel obstruction or gastric outlet obstruction. Given the prior imaging demonstrating terminal ileum dilatation, constellation of findings may represent persistent ileus and distal obstruction. CT of the abdomen and pelvis with IV contrast is recommended Signed by: Dr. Manjeet Ferraro M.D. on 06/05/2017 12:36 AM
[2017-06-05 01:01] LABS: BILIRUBIN,URINE NEGATIVE (NEGATIVE); KETONES,URINE 1+ (NEGATIVE); LEUKOCYTE ESTERASE ,URINE NEGATIVE (NEGATIVE); NITRITE,URINE NEGATIVE (NEGATIVE); PROTEIN,URINE DIPSTICK NEGATIVE (NEGATIVE); URINE UROBILINOGEN 0.2 mg/dL (0.2 - 1)
[2017-06-05 01:07] LABS: CLARITY,URINE CLEAR (CLEAR); COLOR,URINE YELLOW (YELLOW)
[2017-06-05 01:41] LABS: EPITHELIAL CELLS,URINE FEW /LPF; WBC,URINE (MAN) 0-5 /HPF (0-5)
[2017-06-05] MEDS ORDERED: DIATRIZOATE MEGL/DIATRIZOA SOD 30 ML BTL PO ONE (02:07)
--- NOTE | 2017-06-05 04:12 | Diagnostic Imaging Report ---
EXAM: CT Abdomen and Pelvis WITH contrast INDICATION: Bowel obstruction COMPARISON: 06/01/2017 TECHNIQUE: Abdomen and pelvis were scanned utilizing a multidetector helical scanner from the lung base to the pubic symphysis after administration of IV contrast. Coronal and sagittal reformations were obtained. Routine protocol was performed. Scan was performed when during portal venous phase. IV CONTRAST: 100 mL of Isovue-300 ORAL CONTRAST: Water RADIATION DOSE: Total DLP: 680.51 mGy*cm Estimated effective dose: (DLP x 0.015 x size factor) mSv COMPLICATIONS: None FINDINGS: LINES and TUBES: None. LOWER THORAX: Unremarkable HEPATOBILIARY: No focal hepatic lesions. No biliary ductal dilation. GALLBLADDER: No radio-opaque stones or sludge. No wall thickening. SPLEEN: No splenomegaly. PANCREAS: No focal masses or ductal dilatation. ADRENALS: No adrenal nodules KIDNEYS/URETERS: Kidneys enhance symmetrically. No hydronephrosis. No cystic or solid mass lesions. No stones. GI TRACT: Multiple small bowel loops are dilated in the center of the abdomen with decompressed bowel proximal and distally concerning for closed loop small bowel obstruction. The largest loop of bowel measures 7 cm in diameter. Appendix is normal. Again, few calcific densities are visualized within the dilated small bowel loops in the left lower quadrant. PELVIC ORGANS/BLADDER: Unremarkable. LYMPH NODES: No lymphadenopathy. VESSELS: There is moderate atherosclerotic disease in the aorta and major arterial branches. PERITONEUM / RETROPERITONEUM: Mesenteric fluid adjacent to dilated small bowel loops suggest some degree of vascular involvement BONES: Unremarkable. SOFT TISSUES: Unremarkable. IMPRESSION: 1. Findings on today's exam are suspicious for closed loop small bowel obstruction demonstrating a segment of small bowel that is dilated with areas of decompressed small bowel proximal and distal to it. Signed by: Dr. Manjeet Ferraro M.D. on 06/05/2017 4:08 AM
[2017-06-05] MEDS ORDERED: SODIUM CHLORIDE 0.9% 50ML 50 ML ONE (04:20)
[2017-06-05] MEDS ORDERED: IOPAMIDOL 370 MG/ML 200 ML INFUS..BTL INJ ONE (04:20)
[2017-06-05] MEDS ORDERED: HYDRALAZINE HCL 20 MG/ML VIAL IV PRN (05:00)
[2017-06-05] MEDS ORDERED: HYDROMORPHONE 1MG/1ML INJ IV PRN (05:00)
[2017-06-05] MEDS ORDERED: CEFTRIAXONE SOD 1 GM/NS 50 ML 50 ML IV SCH (05:00)
[2017-06-05] MEDS ORDERED: CEFTRIAXONE SOD 1 GM VIAL IV SCH (05:00)
[2017-06-05] MEDS ORDERED: ONDANSETRON HCL INJ 2 MG/ML VIAL IV PRN (05:00)
[2017-06-05] MEDS ORDERED: DEXTROSE 50% SYRINGE 50 ML IV PRN (05:00)
[2017-06-05] MEDS ORDERED: HYDROMORPHONE 2MG/ML INJ IV PRN (06:00)
[2017-06-05] MEDS ORDERED: CEFTRIAXONE SOD 1 GM VIAL IV ONE (06:00)
[2017-06-05] MEDS: SODIUM CHLORIDE 0.9% 1000ML 1,000 ML IV SCH ×3 (06:11→19:50)
[2017-06-05] MEDS: METRONIDAZOLE 500MG/NS 100ML 100 ML IV SCH ×3 (06:11→18:00)
[2017-06-05] MEDS: INSULIN REGULAR, HUMAN 100 UNIT/1 ML 3ML VIAL SQ SCH ×4 (07:30→21:00)
[2017-06-05] MEDS ORDERED: WATER STERILE 10 ML VIAL INJ PRN (09:00)
--- NOTE | 2017-06-05 10:37 | Diagnostic Imaging Report ---
EXAMINATION: Chest, CHEST SINGLE (PORTABLE) INDICATION: Chest pain COMPARISON: Abdominal series with PA chest 06/05/2017 FINDINGS: LINES: Enteric feeding catheter is present with the tip coiled within the gastric body. Heart: Normal cardiac silhouette. Vascular: The pulmonary vasculature is within normal limits. Atherosclerotic calcifications of the aortic arch. Mediastinum: No mediastinal, hilar, or axillary mass or lymphadenopathy. Lungs: No parenchymal mass. No focal consolidation. Bibasilar atelectasis. Pleura: No pleural effusion. No pneumothorax. Bones: No acute osseous abnormality. Degenerative changes of the thoracic spine. Soft tissues: Normal. Impression: No acute radiographic abnormality. Signed by: Dr. Renny Bills M.D. on 06/05/2017 10:33 AM
[2017-06-05] MEDS: DEXTROSE 5%/0.45% SOD CHL 1,000 ML IV SCH (16:55)
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
[2017-06-06] VITALS (7 sets, daily range): BP systolic 134–181; BP diastolic 79–86
[2017-06-06] MEDS: METRONIDAZOLE 500MG/NS 100ML 100 ML IV SCH ×4 (00:09→18:19)
[2017-06-06] MEDS: DEXTROSE 5%/0.45% SOD CHL 1,000 ML IV SCH ×3 (00:52→16:45)
[2017-06-06] MEDS: HYDROMORPHONE 2MG/ML INJ IV PRN ×3 (00:54→18:15)
[2017-06-06] MEDS: CEFTRIAXONE SOD 1 GM VIAL IV SCH (05:08)
[2017-06-06] MEDS: INSULIN REGULAR, HUMAN 100 UNIT/1 ML 3ML VIAL SQ SCH ×4 (07:30→21:00)
[2017-06-06 08:46] LABS: BASOPHILS % 0.6 % (0.0-1.0); EOSINOPHILS # (AUTO) 0.2 (0.0-0.4); HEMATOCRIT 39.6 % (38.2-49.6); HEMOGLOBIN 13.1 g/dL (14.0-18.0); LYMPHOCYTES % 37.9 % (18.0-39.1); MEAN CORPUSCULAR HEMOGLOBIN 29.6 pg (28-32); MEAN CORPUSCULAR HGB CONC 33.1 g/dL (31-35); MEAN CORPUSCULAR VOLUME 89.4 fL (81-99); MONOCYTES # (AUTO) 0.6 (0.2-0.8); MONOCYTES % 11.3 % (4.4-11.3); NEUTROPHILS # (AUTO) 2.5 (2.1-6.9); NEUTROPHILS % 46.8 % (38.7-80.0); PLATELET COUNT 254 x10e3/uL (140-360); RED BLOOD COUNT 4.43 x10e6/uL (4.3-5.7)
[2017-06-06 09:10] LABS: ALANINE AMINOTRANSFERASE 19 IU/L (0-55); ALBUMIN/GLOBULIN RATIO 1.1 (0.8-2.0); ALKALINE PHOSPHATASE 47 IU/L (40-150); ANION GAP 9.5 mmol/L (8-16); BLOOD UREA NITROGEN 6 mg/dL (7-26); BUN/CREATININE RATIO 8 (6-25); CALCIUM 8.2 mg/dL (8.4-10.2); CARBON DIOXIDE 24 mmol/L (22-29); CHLORIDE 112 mmol/L (98-107); CREATININE, SERUM 0.75 mg/dL (0.72-1.25); EST GLOMERULAR FILTRATION RATE > 60 ML/MIN (60-); GLUCOSE 102 mg/dL (74-118); POTASSIUM 3.5 mmol/L (3.5-5.1); SODIUM 142 mmol/L (136-145)
[2017-06-06] MEDS: HYDRALAZINE HCL 20 MG/ML VIAL IV SCH ×2 (12:52→18:19)
[2017-06-06] MEDS: ACETAMINOPHEN 1000 MG/100 ML IV PRN (13:45)
[2017-06-06] MEDS ORDERED: FAMOTIDINE 20 MG/2 ML VIAL IV SCH (17:00)
[2017-06-06] MEDS: SODIUM CHLORIDE 0.9% 1000ML 1,000 ML IV SCH (20:33)
[2017-06-06] MEDS: FAMOTIDINE 20 MG/2 ML VIAL IV SCH (21:09)
[2017-06-07] VITALS (8 sets, daily range): BP systolic 137–181; BP diastolic 85–91
[2017-06-07] MEDS: METRONIDAZOLE 500MG/NS 100ML 100 ML IV SCH ×5 (00:36→23:34)
[2017-06-07] MEDS: DEXTROSE 5%/0.45% SOD CHL 1,000 ML IV SCH ×3 (00:36→16:45)
[2017-06-07] MEDS: SODIUM CHLORIDE 0.9% 1000ML 1,000 ML IV SCH (00:36)
--- NOTE | 2017-06-07 03:01 | Progress Note ---
DATE: June 06, 2017 TIME: 9:15 a.m. OVERNIGHT: No events. Remains with NG tube. REVIEW OF SYSTEMS: Denies any dizziness. PHYSICAL EXAMINATION VITAL SIGNS: Reviewed. Heart rate in the 50s. GENERAL: A tired-appearing man resting in bed. HEENT: Anicteric. He has an NG tube in place. CARDIOVASCULAR: Normal S1 and S2. LUNGS: Moderate breath sounds. ABDOMEN: Soft and nontender. EXTREMITIES: No edema. SKIN: Dry. PSYCHIATRIC: Normal affect. LABS: Reviewed. MEDICATIONS: Reviewed. ASSESSMENT: A 72-year-old man with: 1. Small-bowel obstruction. 2. Urinary tract infection. 3. Constipation. 4. Diabetes mellitus, type 2: Hemoglobin A1c 5.7 and LDL 59. 5. Hypertensive urgency. 6. Metabolic acidosis. 7. Asymptomatic bradycardia. PLAN 1. Continue NG tube. Surgical team considering surgical procedure for his small-bowel obstruction. 2. Continue IV Flagyl and IV ceftriaxone. 3. Continue p.r.n. hydralazine. Avoid AV blocking agents. Obtain a 12-lead EKG for bradycardia. 4. Continue prophylaxis with SCDs and utilize Pepcid. Job#: [id number] [facility]
[2017-06-07] MEDS: CEFTRIAXONE SOD 1 GM VIAL IV SCH (05:28)
[2017-06-07] MEDS: HYDRALAZINE HCL 20 MG/ML VIAL IV SCH ×3 (05:28→17:50)
[2017-06-07] MEDS: INSULIN REGULAR, HUMAN 100 UNIT/1 ML 3ML VIAL SQ SCH ×4 (07:30→20:45)
[2017-06-07] MEDS: FAMOTIDINE 20 MG/2 ML VIAL IV SCH ×2 (07:48→20:44)
[2017-06-07] MEDS: ACETAMINOPHEN 1000 MG/100 ML IV PRN ×3 (07:59→20:44)
--- NOTE | 2017-06-07 11:56 | Progress Note ---
DATE: June 07, 2017 TIME: 8:26 a.m. OVERNIGHT: No events. REVIEW OF SYSTEMS: Denies any dizziness. VITAL SIGNS: Reviewed. PHYSICAL EXAMINATION GENERAL: A tired-appearing man resting in bed. HEENT: Anicteric. He has an NG tube in place. CARDIOVASCULAR: Normal S1 and S2. LUNGS: Moderate breath sounds. ABDOMEN: Soft and nontender. EXTREMITIES: No edema. SKIN: Dry. PSYCHIATRIC: Normal affect. LABS: Reviewed. MEDICATIONS: Reviewed. ASSESSMENT: A 72-year-old man. 1. Small-bowel obstruction. 2. Urinary tract infection. 3. Constipation. 4. Diabetes mellitus, type 2. Hemoglobin A1c 5.7 and LDL 59. 5. Hypertensive urgency. 6. Metabolic acidosis. 7. Asymptomatic bradycardia. PLAN 1. Plan for surgery today. 2. Continue to monitor blood pressure. 3. Continue IV Flagyl and IV ceftriaxone. 4. Continue prophylaxis. Job#: [id number]
[2017-06-08] VITALS (7 sets, daily range): BP systolic 123–167; BP diastolic 72–92
[2017-06-08] MEDS: DEXTROSE 5%/0.45% SOD CHL 1,000 ML IV SCH (00:45)
[2017-06-08] MEDS: CEFTRIAXONE SOD 1 GM VIAL IV SCH (04:27)
[2017-06-08] MEDS: ACETAMINOPHEN 1000 MG/100 ML IV PRN ×2 (04:35→20:35)
[2017-06-08] MEDS: HYDRALAZINE HCL 20 MG/ML VIAL IV SCH (05:30)
[2017-06-08] MEDS: METRONIDAZOLE 500MG/NS 100ML 100 ML IV SCH (05:30)
[2017-06-08] MEDS ORDERED: ENALAPRILAT IV INJ 1.25 MG/ML VIAL IV SCH (06:30)
[2017-06-08] MEDS: INSULIN REGULAR, HUMAN 100 UNIT/1 ML 3ML VIAL SQ SCH (07:30)
--- NOTE | 2017-06-08 07:50 | Progress Note ---
DATE: June 08, 2017 TIME: 6:00 a.m. OVERNIGHT: No events. Surgery not performed due to no time slot for the procedure, planned for today. REVIEW OF SYSTEMS: Denies any dizziness. PHYSICAL EXAMINATION: VITAL SIGNS: Reviewed. Blood pressure 153/92. GENERAL APPEARANCE: Tired-appearing man resting in bed. HEENT: Anicteric. Has NG tube in place. CARDIOVASCULAR: Normal S1 and S2. LUNGS: Moderate breath sounds. ABDOMEN: Soft, nontender. EXTREMITIES: No edema. SKIN: Dry. PSYCHIATRIC: Normal affect. LABS: Reviewed. MEDICATIONS: Reviewed. ASSESSMENT: A 72-year-old man: 1. Small-bowel obstruction. 2. Urinary tract infection. 3. Constipation. 4. Diabetes mellitus type 2. Hemoglobin A1c 5.7, LDL 59. 5. Hypertensive urgency. 6. Metabolic acidosis. 7. Asymptomatic bradycardia. PLAN: 1. Surgery planned for today. 2. Continue blood pressure management, adjust medication. 3. Continue IV Flagyl and IV Levaquin. 4. Continue prophylaxis. Job#: [id number]
[2017-06-08] MEDS: DEXTROSE 5%/LACTATED RINGERS 1,000 ML IV SCH ×2 (09:50→20:11)
[2017-06-08] MEDS ORDERED: FENTANYL CITRATE/PF 100MCG/2 ML INJ ONE ×2 (10:09→14:02)
[2017-06-08] MEDS ORDERED: MORPHINE SULFATE 2 MG/ML SYR ONE (10:36)
[2017-06-08] MEDS: SODIUM CHLORIDE 0.9% 250ML IRRIG IR SCH ×4 (10:58→22:29)
[2017-06-08] MEDS: NITROGLYCERIN 2% OINT 1 GM PKT TOP SCH ×2 (12:11→17:40)
[2017-06-08] MEDS: PANTOPRAZOLE 40 MG 10ML VIAL IV SCH (12:11)
[2017-06-08] MEDS: HYDROMORPHONE 2MG/ML INJ IV PRN (13:39)
[2017-06-08] MEDS ORDERED: MIDAZOLAM HCL 2 MG/2 ML VIAL ONE (14:02)
--- NOTE | 2017-06-08 15:33 | Operative Report ---
DATE OF PROCEDURE: June 08, 2017 PREOPERATIVE DIAGNOSIS: Small bowel obstruction. POSTOPERATIVE DIAGNOSIS: Small bowel obstruction. OPERATIONS PERFORMED 1. Exploratory laparotomy. 2. Small bowel resection. 3. Appendectomy. GRANULIZING MACHINE OPERATOR: Dr. Terrance Mcmanus and HECTOR Coles. ANESTHESIA: General. COMPLICATIONS: None. ESTIMATED BLOOD LOSS: Minimal. DESCRIPTION OF PROCEDURE: With the patient lying in bed in the supine position under good general endotracheal anesthesia, the abdomen was prepped with Betadine solution and draped in the usual manner. A midline incision was made. It was carried down through the subcutaneous tissue down to the fascia. There was a lot of scarring from the patient's previous surgery and what appeared to be some kind of a Prolene-type suture was removed. The fascia was then opened. Peritoneum was opened and the abdomen was entered. Upon entering the abdominal cavity, exploration revealed there was a lot of adhesions to the upper abdomen from the patient's previous surgery. We could not feel the stomach as it was covered up by the colon and the omentum that was stuck in the upper abdomen. The gallbladder could be palpated. It was somewhat distended. It did not contain any stones that could be palpated. There were some adhesions around the liver. Examination of the small bowel at this point revealed proximally distended small bowel. The small bowel was then run beginning at the ligament of Treitz distally and at about the level of the proximal ileum, there was a loop of adhesions that had where the bowel was stuck quite a bit and this was clearly the point of obstruction. As distal ileum was decompressed just proximal to where the obstruction point was, there were palpable within the bowel numerous hard masses consistent with some form of calcified material, which was certainly adding to the obstruction as those things could not get through the narrowed area in the ileum. We decided the best thing to do would be to go ahead and resect the area containing all of the calcified masses that were within the small bowel. Proximally and distally, the small bowel was then divided with the VIC stapler. The mesentery was divided with the Enseal device and a piece of bowel was sent for pathological examination. After this was done, the anastomosis was performed with another application of the VIC 75 stapler. Remaining opening was closed with a TA 60 stapler. Gloves and instruments were changed. Anastomosis was then reinforced with interrupted sutures of 3-0 silk. The mesenteric rent was closed with a running suture of 2-0 Vicryl. We decided to go ahead and do an appendectomy on the patient's so that if he develops any further pain, the appendix was not be a part of the differential going forward. The mesentery of the appendix was divided with the Enseal device. The base of the appendix was ligated with 2-0 Vicryl. The appendix was then divided and the stump was cauterized, and the stump was then inverted with a pursestring suture of 3-0 Vicryl. The abdomen was then irrigated. Hemostasis was ascertained. The bowel was returned back to the intra-abdominal cavity in an internet specialist fashion and the wound was then closed in layers. The peritoneum was closed with a running suture of #1 Vicryl, the midline fascia was closed with a running suture of #1 Vicryl, and the skin was closed with clips. A dressing was applied. The sponge, lap, and needle count was correct. Patient tolerated the procedure well and returned to the recovery room in stable condition. Job#: [id number] [facility]
[2017-06-08] MEDS ORDERED: PROPOFOL IV EMULSION 10 MG/ML 20 ML VIAL ONE (17:50)
[2017-06-08] MEDS ORDERED: ACETAMINOPHEN 1000 MG/100 ML IV ONE (17:50)
[2017-06-08] MEDS ORDERED: ROCURONIUM BROMIDE 10 MG/ML 5ML VIAL ONE (17:50)
[2017-06-08] MEDS ORDERED: NEOSTIGMINE 5 MG/5ML SYR ONE (17:50)
[2017-06-08] MEDS ORDERED: DEXAMETHASONE SOD PHOS INJ 4 MG/ML VIAL ONE (17:50)
[2017-06-08] MEDS ORDERED: KETOROLAC TROMETHAMINE 30 MG/ML VIAL ONE (17:50)
[2017-06-08] MEDS ORDERED: SEVOFLURANE INHAL SOLN 250 ML PEN BTL ONE (17:50)
[2017-06-08] MEDS ORDERED: SUCCINYLCHOLINE 200 MG/10 ML SYR ONE (17:50)
[2017-06-08] MEDS ORDERED: ATROPINE SULFATE 1 MG/ML VIAL ONE (17:50)
[2017-06-08] MEDS ORDERED: ONDANSETRON HCL INJ 2 MG/ML VIAL ONE (17:50)
[2017-06-08] MEDS ORDERED: LIDOCAINE HCL 2% LOCAL INJ 5 ML SDV VIAL INJ ONE (17:50)
[2017-06-09] VITALS (8 sets, daily range): BP systolic 113–161; BP diastolic 63–88
[2017-06-09] MEDS: SODIUM CHLORIDE 0.9% 250ML IRRIG IR SCH ×6 (02:30→23:52)
[2017-06-09] MEDS: ACETAMINOPHEN 1000 MG/100 ML IV PRN ×2 (03:33→09:54)
[2017-06-09] MEDS: CEFTRIAXONE SOD 1 GM VIAL IV SCH (05:22)
[2017-06-09] MEDS: DEXTROSE 5%/LACTATED RINGERS 1,000 ML IV SCH ×2 (05:23→15:50)
[2017-06-09] MEDS: NITROGLYCERIN 2% OINT 1 GM PKT TOP SCH ×4 (06:11→17:11)
[2017-06-09 06:55] LABS: BASOPHILS % 0.2 % (0.0-1.0); EOSINOPHILS % 0.1 % (0.0-6.0); HEMATOCRIT 38.8 % (38.2-49.6); HEMOGLOBIN 12.8 g/dL (14.0-18.0); LYMPHOCYTES # (AUTO) 1.3 (1.0-3.2); LYMPHOCYTES % 15.2 % (18.0-39.1); MEAN CORPUSCULAR HEMOGLOBIN 29.6 pg (28-32); MEAN CORPUSCULAR VOLUME 89.6 fL (81-99); MONOCYTES # (AUTO) 0.9 (0.2-0.8); MONOCYTES % 9.8 % (4.4-11.3); NEUTROPHILS # (AUTO) 6.5 (2.1-6.9); NEUTROPHILS % 74.4 % (38.7-80.0); PLATELET COUNT 241 x10e3/uL (140-360); RED BLOOD COUNT 4.33 x10e6/uL (4.3-5.7); RED CELL DISTRIBUTION WIDTH 13.9 % (11.7-14.4)
[2017-06-09 07:22] LABS: ANION GAP 11.7 mmol/L (8-16); BLOOD UREA NITROGEN 9 mg/dL (7-26); BUN/CREATININE RATIO 11 (6-25); CALCIUM 8.6 mg/dL (8.4-10.2); CARBON DIOXIDE 23 mmol/L (22-29); CHLORIDE 111 mmol/L (98-107); EST GLOMERULAR FILTRATION RATE > 60 ML/MIN (60-); GLUCOSE 131 mg/dL (74-118); POTASSIUM 3.7 mmol/L (3.5-5.1); SODIUM 142 mmol/L (136-145)
[2017-06-09] MEDS: PANTOPRAZOLE 40 MG 10ML VIAL IV SCH (09:49)
[2017-06-09] MEDS: KETOROLAC TROMETHAMINE 30 MG/ML VIAL IV PRN ×2 (14:30→21:40)
[2017-06-09] MEDS ORDERED: ACETAMINOPHEN 1000 MG/100 ML IV PRN (15:45)
[2017-06-09] MEDS: BISACODYL 10 MG SUPP PR SCH (21:40)
[2017-06-10] VITALS: BP 125/67
[2017-06-10 01:09] VITALS: BP 143/80
[2017-06-10] MEDS: SODIUM CHLORIDE 0.9% 250ML IRRIG IR SCH ×6 (02:40→22:00)
[2017-06-10] MEDS: DEXTROSE 5%/LACTATED RINGERS 1,000 ML IV SCH ×3 (02:40→23:48)
[2017-06-10 04:00] VITALS: BP 160/85
[2017-06-10] MEDS: NITROGLYCERIN 2% OINT 1 GM PKT TOP SCH ×4 (06:00→18:19)
[2017-06-10] MEDS: CEFTRIAXONE SOD 1 GM VIAL IV SCH (06:22)
[2017-06-10] MEDS: KETOROLAC TROMETHAMINE 30 MG/ML VIAL IV PRN ×2 (06:54→18:40)
[2017-06-10 07:09] LABS: BASOPHILS % 0.4 % (0.0-1.0); EOSINOPHILS # (AUTO) 0.1 (0.0-0.4); EOSINOPHILS % 0.7 % (0.0-6.0); HEMATOCRIT 36.7 % (38.2-49.6); HEMOGLOBIN 12.1 g/dL (14.0-18.0); LYMPHOCYTES # (AUTO) 0.9 (1.0-3.2); MEAN CORPUSCULAR VOLUME 90.8 fL (81-99); MONOCYTES % 10.5 % (4.4-11.3); NEUTROPHILS # (AUTO) 7.2 (2.1-6.9); NEUTROPHILS % 78.1 % (38.7-80.0); PLATELET COUNT 196 x10e3/uL (140-360); RED BLOOD COUNT 4.04 x10e6/uL (4.3-5.7); RED CELL DISTRIBUTION WIDTH 13.8 % (11.7-14.4)
[2017-06-10 07:32] LABS: ANION GAP 10.6 mmol/L (8-16); BLOOD UREA NITROGEN 7 mg/dL (7-26); BUN/CREATININE RATIO 10 (6-25); CALCIUM 8.4 mg/dL (8.4-10.2); CARBON DIOXIDE 24 mmol/L (22-29); CHLORIDE 110 mmol/L (98-107); CREATININE, SERUM 0.68 mg/dL (0.72-1.25); EST GLOMERULAR FILTRATION RATE > 60 ML/MIN (60-); GLUCOSE 131 mg/dL (74-118); POTASSIUM 3.6 mmol/L (3.5-5.1); SODIUM 141 mmol/L (136-145)
--- NOTE | 2017-06-10 08:18 | Progress Note ---
DATE: June 09, 2017 TIME: 6:50 a.m. OVERNIGHT: Patient had surgery. Currently, he is not passing any flatus yet. Pain is about 6/10. REVIEW OF SYSTEMS: Denies any dizziness. PHYSICAL EXAMINATION VITAL SIGNS: Reviewed. GENERAL: A tired-appearing man resting in bed. HEENT: Anicteric. CARDIOVASCULAR: Normal S1 and S2. LUNGS: Moderate breath sounds. ABDOMEN: Soft. He has dressing in place and remains dry. Appropriate tenderness. EXTREMITIES: No edema. SKIN: Dry. PSYCHIATRIC: Flat affect. LABS: Reviewed. MEDICATIONS: Reviewed. ASSESSMENT: This is a 72-year-old man with: 1. Small-bowel obstruction. 2. Urinary tract infection. 3. Constipation. 4. Diabetes mellitus, type 2: Hemoglobin A1c 5.7, LDL 59. 5. Hypertensive urgency. 6. Metabolic acidosis. 7. Asymptomatic bradycardia. PLAN 1. Continue management. 2. Continue pain control. 3. Ambulate the patient. 4. Continue antibiotics. 5. Await return of bowel function. Job#: [id number] [place]
--- NOTE | 2017-06-10 08:21 | Progress Note ---
DATE: June 10, 2017 TIME: 7:50 a.m. OVERNIGHT: Continues to have some abdominal pain. No flatus. REVIEW OF SYSTEMS: Denies any dizziness or chest pain. PHYSICAL EXAMINATION VITAL SIGNS: Reviewed. GENERAL: A tired-appearing man resting in bed. HEENT: Anicteric. He has an NG tube in place. CARDIOVASCULAR: Normal S1 and S2. LUNGS: Moderate breath sounds. ABDOMEN: Soft. He has a dressing in place clean and dry. EXTREMITIES: No edema. SKIN: Dry. PSYCHIATRIC: Flat affect. LABS: Reviewed. MEDICATIONS: Reviewed. ASSESSMENT: A 72-year-old man with: 1. Small-bowel obstruction: Status post resection and appendectomy. 2. Urinary tract infection. 3. Constipation. 4. Diabetes mellitus, type 2: Hemoglobin A1c 5.7, LDL 59. 5. Hypertensive urgency. 6. Metabolic acidosis. 7. Asymptomatic bradycardia. PLAN 1. Ambulate the patient. 2. Await return of bowel function. 3. Continue broad-spectrum antibiotics. 4. Hemoglobin is stable. 5. Renal function is stable. 6. Glucose is controlled. 7. All cultures remain negative. Job#: [id number] [place]
[2017-06-10 10:16] VITALS: BP 154/70
[2017-06-10] MEDS: BISACODYL 10 MG SUPP PR SCH (10:16)
[2017-06-10] MEDS: PANTOPRAZOLE 40 MG 10ML VIAL IV SCH (12:00)
[2017-06-10] MEDS: NICOTINE 14 MG/EA PATCH TOP SCH (14:30)
[2017-06-10 20:00] VITALS: BP 121/69
[2017-06-11] VITALS (9 sets, daily range): BP systolic 120–172; BP diastolic 69–96
[2017-06-11] MEDS: SODIUM CHLORIDE 0.9% 250ML IRRIG IR SCH ×3 (02:00→07:54)
[2017-06-11] MEDS: CEFTRIAXONE SOD 1 GM VIAL IV SCH (05:45)
[2017-06-11] MEDS: NITROGLYCERIN 2% OINT 1 GM PKT TOP SCH ×4 (06:12→16:57)
[2017-06-11 06:40] LABS: BASOPHILS % 0.3 % (0.0-1.0); EOSINOPHILS # (AUTO) 0.3 (0.0-0.4); EOSINOPHILS % 2.9 % (0.0-6.0); HEMATOCRIT 36.4 % (38.2-49.6); HEMOGLOBIN 12.1 g/dL (14.0-18.0); LYMPHOCYTES # (AUTO) 1.5 (1.0-3.2); LYMPHOCYTES % 17.1 % (18.0-39.1); MEAN CORPUSCULAR HEMOGLOBIN 29.9 pg (28-32); MEAN CORPUSCULAR HGB CONC 33.2 g/dL (31-35); MEAN CORPUSCULAR VOLUME 89.9 fL (81-99); MONOCYTES # (AUTO) 0.9 (0.2-0.8); MONOCYTES % 10.4 % (4.4-11.3); NEUTROPHILS # (AUTO) 5.9 (2.1-6.9); PLATELET COUNT 218 x10e3/uL (140-360); RED BLOOD COUNT 4.05 x10e6/uL (4.3-5.7); RED CELL DISTRIBUTION WIDTH 13.7 % (11.7-14.4)
[2017-06-11 07:00] LABS: ANION GAP 11.4 mmol/L (8-16); BLOOD UREA NITROGEN 10 mg/dL (7-26); BUN/CREATININE RATIO 15 (6-25); CALCIUM 8.8 mg/dL (8.4-10.2); CARBON DIOXIDE 24 mmol/L (22-29); CHLORIDE 110 mmol/L (98-107); CREATININE, SERUM 0.67 mg/dL (0.72-1.25); EST GLOMERULAR FILTRATION RATE > 60 ML/MIN (60-); GLUCOSE 130 mg/dL (74-118); POTASSIUM 3.4 mmol/L (3.5-5.1); SODIUM 142 mmol/L (136-145)
[2017-06-11] MEDS: NICOTINE 14 MG/EA PATCH TOP SCH (07:54)
[2017-06-11] MEDS ORDERED: POTASSIUM CHLORIDE 20MEQ/100ML 100 ML IV STA (08:28)
[2017-06-11] MEDS ORDERED: NICOTINE 14 MG/EA PATCH TOP SCH (09:00)
[2017-06-11] MEDS: PANTOPRAZOLE 40 MG 10ML VIAL IV SCH (09:10)
--- NOTE | 2017-06-11 09:20 | Progress Note ---
DATE: June 11, 2017 TIME: 8:27 a.m. OVERNIGHT: Passing flatus. Had a small bowel movement. REVIEW OF SYSTEMS: Denies any dizziness. Abdominal pain is 5/10. PHYSICAL EXAMINATION GENERAL: A tired-appearing man resting in bed. HEENT: Anicteric. CARDIOVASCULAR: Normal S1 and S2. LUNGS: Moderate breath sounds. ABDOMEN: Soft. He has a dressing in place. EXTREMITIES: No edema. SKIN: Dry. PSYCHIATRIC: Normal affect. LABS: Reviewed. MEDICATIONS: Reviewed. ASSESSMENT: A 72-year-old man with: 1. Small-bowel obstruction: Status post resection and appendectomy. 2. Urinary tract infection. 3. Constipation. 4. Diabetes mellitus, type 2: Hemoglobin A1c 5.7, LDL 59. 5. Hypertensive urgency. 6. Metabolic acidosis. 7. Asymptomatic bradycardia. PLAN 1. Passing flatus and had a small bowel movement. Continue ambulation. 2. Continue pain control. 3. Continue broad-spectrum antibiotics. 4. All cultures remain negative. 5. No leukocytosis. 6. Replace potassium and continue physical therapy. 7. Diet per surgical team. Job#: [id number] [place]
[2017-06-11] MEDS: DEXTROSE 5%/LACTATED RINGERS 1,000 ML IV SCH ×2 (09:21→19:22)
[2017-06-11] MEDS: POTASSIUM CHLORIDE 10MEQ/100ML 100 ML INJ SCH ×2 (09:21→12:37)
[2017-06-11] MEDS: KETOROLAC TROMETHAMINE 30 MG/ML VIAL IV PRN (09:28)
[2017-06-11] MEDS ORDERED: POTASSIUM CHLORIDE 10MEQ/100ML 100 ML INJ SCH (12:30)
[2017-06-12] VITALS (9 sets, daily range): BP systolic 130–152; BP diastolic 64–81
[2017-06-12] MEDS: NITROGLYCERIN 2% OINT 1 GM PKT TOP SCH ×4 (01:10→17:35)
[2017-06-12] MEDS: DEXTROSE 5%/LACTATED RINGERS 1,000 ML IV SCH ×3 (03:50→23:50)
[2017-06-12] MEDS: CEFTRIAXONE SOD 1 GM VIAL IV SCH (06:04)
[2017-06-12] MEDS: NICOTINE 14 MG/EA PATCH TOP SCH (08:12)
[2017-06-12] MEDS: PANTOPRAZOLE 40 MG 10ML VIAL IV SCH (08:12)
[2017-06-12 10:32] LABS: MAGNESIUM 1.4 MG/DL (1.3-2.1); PHOSPHORUS 2.1 MG/DL (2.3-4.7); POTASSIUM 3.4 mmol/L (3.5-5.1)
[2017-06-12] MEDS: HYDROMORPHONE 2MG/ML INJ IV PRN (13:56)
[2017-06-13] VITALS (7 sets, daily range): BP systolic 123–160; BP diastolic 61–84
[2017-06-13] MEDS: NITROGLYCERIN 2% OINT 1 GM PKT TOP SCH ×4 (00:45→16:59)
[2017-06-13] MEDS: ACETAMINOPHEN 325 MG TAB PO PRN ×3 (04:19→23:08)
[2017-06-13] MEDS: CEFTRIAXONE SOD 1 GM VIAL IV SCH (05:44)
[2017-06-13] MEDS ORDERED: VANCOMYCIN 1GM/NS 250 ML 250 ML IV ONE (07:45)
[2017-06-13] MEDS: NICOTINE 14 MG/EA PATCH TOP SCH (08:15)
[2017-06-13] MEDS: DEXTROSE 5%/LACTATED RINGERS 1,000 ML IV SCH ×2 (08:16→21:57)
[2017-06-13] MEDS: PANTOPRAZOLE 40 MG 10ML VIAL IV SCH (08:16)
--- NOTE | 2017-06-13 08:45 | Progress Note ---
DATE: June 13, 2017 TIME: 7:32 a.m. OVERNIGHT: Patient had fever with temperature as high as 101.5. REVIEW OF SYSTEMS: Denies any dizziness. VITAL SIGNS: Reviewed. LABS: Reviewed. MEDICATIONS: Reviewed. ASSESSMENT: This is a 72-year-old man. 1. Small-bowel obstruction, status post resection and appendectomy. 2. Urinary tract infection. 3. Constipation. 4. Diabetes mellitus, type 2. Hemoglobin A1c 5.7 and LDL 59. 5. Hypertensive urgency. 6. Metabolic acidosis. 7. Asymptomatic bradycardia. PLAN 1. Continue ambulation. 2. Continue bowel regimen. 3. Will obtain blood cultures due to fever. Will also recheck urinalysis with reflex culture. 4. Patient is currently on IV ceftriaxone. Will discontinue ceftriaxone and use vancomycin and Zosyn. Will give him 1 dose of vancomycin. 5. Will obtain labs this morning. 6. The patient will remain in the hospital today while we monitor his temperature and follow up his labs. Job#: [id number]
[2017-06-13 08:53] LABS: BILIRUBIN,URINE NEGATIVE (NEGATIVE); KETONES,URINE NEGATIVE (NEGATIVE); LEUKOCYTE ESTERASE ,URINE NEGATIVE (NEGATIVE); NITRITE,URINE NEGATIVE (NEGATIVE); PROTEIN,URINE DIPSTICK NEGATIVE (NEGATIVE); URINE UROBILINOGEN 0.2 mg/dL (0.2 - 1)
[2017-06-13 08:54] LABS: CLARITY,URINE CLEAR (CLEAR); COLOR,URINE YELLOW (YELLOW)
--- NOTE | 2017-06-13 08:54 | Progress Note ---
DATE: June 12, 2017 TIME: 7:00 a.m. OVERNIGHT: No events. Passing flatus. REVIEW OF SYSTEMS: Denies any dizziness. PHYSICAL EXAMINATION: VITAL SIGNS: Reviewed. GENERAL APPEARANCE: Tired-appearing man resting in bed. HEENT: Anicteric. CARDIOVASCULAR: Normal S1 and S2. LUNGS: Moderate breath sounds. ABDOMEN: Soft, nontender, nondistended. He has dressing in place. EXTREMITIES: No edema. SKIN: Dry. PSYCHIATRIC: Flat affect. LABS: Reviewed. MEDICATIONS: Reviewed. ASSESSMENT: A 72-year-old man. 1. Small-bowel obstruction, status post resection and appendectomy. 2. Urinary tract infection. 3. Constipation. 4. Diabetes mellitus type 2. Hemoglobin A1c 5.7, LDL 59. 5. Hypertensive urgency. 6. Metabolic acidosis. 7. Symptomatic bradycardia. PLAN: 1. Continue ambulation. 2. Continue pain control. 3. Follow up labs. 4. If patient is improving, then discharge planning. Job#: [id number]
[2017-06-13 09:04] LABS: BACTERIA,URINE RARE /HPF; RBC,URINE 0-5 /HPF (0-5); WBC,URINE (MAN) 0-5 /HPF (0-5)
--- NOTE | 2017-06-13 09:46 | Diagnostic Imaging Report ---
EXAM: CHEST SINGLE (NOT PORTABLE) DATE: 06/13/2017 8:16 AM INDICATION: Fever COMPARISON: 06/05/2017 FINDINGS: Heart is accentuated by low lung volumes. There is elevation the left hemidiaphragm with left basilar airspace opacity. No pneumothorax. Probable tiny granuloma left upper lobe. NG tube removed. IMPRESSION: Left basilar atelectasis versus pneumonia. Signed by: Dr. John Leon MD on 06/13/2017 9:43 AM
[2017-06-13 09:59] LABS: BASOPHILS % 0.3 % (0.0-1.0); EOSINOPHILS # (AUTO) 0.2 (0.0-0.4); HEMATOCRIT 36.2 % (38.2-49.6); HEMOGLOBIN 11.8 g/dL (14.0-18.0); LYMPHOCYTES # (AUTO) 1.3 (1.0-3.2); LYMPHOCYTES % 16.7 % (18.0-39.1); MEAN CORPUSCULAR HEMOGLOBIN 29.2 pg (28-32); MEAN CORPUSCULAR HGB CONC 32.6 g/dL (31-35); MEAN CORPUSCULAR VOLUME 89.6 fL (81-99); MONOCYTES # (AUTO) 0.9 (0.2-0.8); MONOCYTES % 10.9 % (4.4-11.3); NEUTROPHILS # (AUTO) 5.5 (2.1-6.9); NEUTROPHILS % 68.7 % (38.7-80.0); PLATELET COUNT 221 x10e3/uL (140-360); RED BLOOD COUNT 4.04 x10e6/uL (4.3-5.7); RED CELL DISTRIBUTION WIDTH 13.5 % (11.7-14.4)
[2017-06-13 10:23] LABS: ANION GAP 12.3 mmol/L (8-16); BLOOD UREA NITROGEN < 5 mg/dL (7-26); CALCIUM 8.8 mg/dL (8.4-10.2); CARBON DIOXIDE 25 mmol/L (22-29); CHLORIDE 107 mmol/L (98-107); CREATININE, SERUM 0.73 mg/dL (0.72-1.25); EST GLOMERULAR FILTRATION RATE > 60 ML/MIN (60-); GLUCOSE 175 mg/dL (74-118); MAGNESIUM 1.7 MG/DL (1.3-2.1); POTASSIUM 3.3 mmol/L (3.5-5.1); SODIUM 141 mmol/L (136-145)
[2017-06-13 10:25] LABS: BUN/CREATININE RATIO 7 (6-25)
[2017-06-13] MEDS ORDERED: POTASSIUM CHLORIDE 20 MEQ TAB CR PO ONE ×2 (12:00→14:00)
[2017-06-13] MEDS: PIPER-TAZ 3.375 GM 50 ML IV SCH ×2 (13:26→21:57)
[2017-06-14] VITALS: BP 142/79
[2017-06-14] MEDS: NITROGLYCERIN 2% OINT 1 GM PKT TOP SCH ×4 (00:47→17:28)
[2017-06-14 04:00] VITALS: BP 119/70
[2017-06-14] MEDS: PIPER-TAZ 3.375 GM 50 ML IV SCH ×3 (06:02→21:24)
[2017-06-14] MEDS: HYDROMORPHONE 2MG/ML INJ IV PRN (06:10)
[2017-06-14 08:28] VITALS: BP 141/71
[2017-06-14] MEDS: NICOTINE 14 MG/EA PATCH TOP SCH (09:00)
[2017-06-14] MEDS: PANTOPRAZOLE 40 MG 10ML VIAL IV SCH (10:00)
[2017-06-14] MEDS: ACETAMINOPHEN 325 MG TAB PO PRN (13:25)
[2017-06-14 13:27] VITALS: BP 152/79
[2017-06-14 16:44] VITALS: BP 119/70
[2017-06-14 20:00] VITALS: BP 150/84
[2017-06-15] VITALS: BP 142/80
[2017-06-15] MEDS: NITROGLYCERIN 2% OINT 1 GM PKT TOP SCH ×2 (00:45→06:06)
[2017-06-15] MEDS: DEXTROSE 5%/LACTATED RINGERS 1,000 ML IV SCH (02:08)
[2017-06-15 02:24] VITALS: BP 142/80
[2017-06-15 04:00] VITALS: BP 139/69
[2017-06-15] MEDS: PIPER-TAZ 3.375 GM 50 ML IV SCH (06:05)
[2017-06-15] MEDS ORDERED: LEVAQUIN500 MG PO (07:13)
[2017-06-15] MEDS ORDERED: MIRALAX17 GM PO (07:13)
[2017-06-15] MEDS ORDERED: PROTONIX40 MG PO (07:13)
[2017-06-15] MEDS ORDERED: NICODERM CQ1 EAC1 TOP (07:13)
[2017-06-15] MEDS ORDERED: FLAGYL500 MG PO (07:13)
--- NOTE | 2017-06-15 07:31 | Discharge Summary ---
PRINCIPAL DIAGNOSES 1. Small-bowel obstruction, status post resection and appendectomy. 2. Urinary tract infection. 3. Constipation. 4. Diabetes mellitus, type 2. Hemoglobin A1c 5.7, LDL 59. 5. Hypertensive urgency. 6. Metabolic acidosis. 7. Asymptomatic bradycardia. SECONDARY DIAGNOSIS: Constipation. CHIEF COMPLAINT: Abdominal pain. HISTORY OF PRESENT ILLNESS: This is a 72-year-old man with abdominal pain and found to have small-bowel obstruction. Please refer to the H and P for further details. HOSPITAL COURSE: Patient had small-bowel obstruction and underwent resection and appendectomy. Urinary tract infection was treated with antibiotics. Constipation treated with bowel regimen. Diabetes mellitus, type 2 with hemoglobin A1c of 5.7 and LDL 59. He had hypertensive urgency and treated with medication regimen. He is doing better. He had asymptomatic bradycardia. He is doing better and currently appropriate for discharge and follow up. DISCHARGE MEDICATIONS: Per electronic medical record. FOLLOWUP: Primary care doctor in 1 week. Also, follow up with surgery in 1-2 weeks. CONDITION ON DISCHARGE: Stable and improving. DISCHARGE LOCATION: Home with physical therapy. HANNAH CRYSTAL MD Job#: [id number] [place]
--- NOTE | 2017-06-15 07:42 | Progress Note ---
DATE: June 12, 2017 TIME: 7:15 a.m. OVERNIGHT: No events. REVIEW OF SYSTEMS: Denies any dizziness or chest pain. PHYSICAL EXAMINATION: VITAL SIGNS: Reviewed. GENERAL APPEARANCE: Tired-appearing man resting in bed. HEENT: Anicteric. CARDIOVASCULAR: Normal S1 and S2. LUNGS: Moderate breath sounds. ABDOMEN: Soft, nondistended. Dressing in place. EXTREMITIES: No edema. SKIN: Dry. PSYCHIATRIC: Flat affect. LABS: Reviewed. MEDICATIONS: Reviewed. ASSESSMENT: This is a 72-year-old man: 1. Small-bowel obstruction. 2. Urinary tract infection. 3. Constipation. 4. Diabetes mellitus type 2. Hemoglobin A1c 5.7. 5. Hypertensive urgency. 6. Metabolic acidosis. 7. Asymptomatic bradycardia. PLAN: 1. Continue ambulation. 2. Pain control. 3. Patient ambulated today. 4. Follow up cultures. 5. Replace electrolytes. Job#: [id number]
--- NOTE | 2017-06-15 07:47 | Progress Note ---
DATE: June 14, 2017 TIME: 5:30 p.m. OVERNIGHT: No events. REVIEW OF SYSTEMS: Denies any dizziness. PHYSICAL EXAMINATION VITAL SIGNS: Reviewed. GENERAL APPEARANCE: Tired-appearing man resting in bed. HEENT: Anicteric. CARDIOVASCULAR: Normal S1 and S2. LUNGS: Moderate breath sounds. ABDOMEN: Soft, nondistended. Dressing in place. EXTREMITIES: No edema. SKIN: Dry. PSYCHIATRIC: Flat affect. LABS: Reviewed. MEDICATIONS: Reviewed. ASSESSMENT: This is a 72-year-old man 1. Small-bowel obstruction, status post resection and appendectomy. 2. Urinary tract infection. 3. Constipation. 4. Diabetes mellitus type 2. 5. Hypertensive urgency. 6. Metabolic acidosis. 7. Asymptomatic bradycardia. PLAN 1. Continue ambulation. 2. Continue bowel regimen. 3. Continue diet. 4. Discharge plan. Job#: [id number]
[2017-06-15] MEDS: NICOTINE 14 MG/EA PATCH TOP SCH (09:00)
[2017-06-15 09:43] VITALS: BP 135/74
[2017-06-15] MEDS: PANTOPRAZOLE 40 MG 10ML VIAL IV SCH (10:00)
[2017-06-15] MEDS ORDERED: POTASSIUM CHLORIDE 20 MEQ TAB CR PO NR (13:00)
[2017-06-15 14:32] VITALS: BP 122/75
== END 2017-06-15 16:55 | disposition home or self-care (01) | DRG 330 ==
LOC: ER 23:31 → MED/SURG 06-05 05:29
PROVIDERS: ADMIT Internal Medicine; ATTEND Internal Medicine
PROC: 0DB80ZZ Excision of Small Intestine, Open Approach (ICD-10-PCS; principal; 2017-06-08 07:30)
PROC: 0DTJ0ZZ Resection of Appendix, Open Approach (ICD-10-PCS; 2017-06-08 07:30)
DX: K56.52 Intestinal adhesions [bands] with complete obstruction (principal); N39.0 Urinary tract infection, site not specified; E87.2 Acidosis; E11.9 Type 2 diabetes mellitus without complications; R00.1 Bradycardia, unspecified; K59.00 Constipation, unspecified; I16.0 Hypertensive urgency
CPT/HCPCS: 36415; 71010; 74022; 74177; 80048; 80053; 81001; 82150; 82948; 83690; 83735; 84100; 84132; 85025; 87040; 87086; 87186; 88302; 88304; 88307; 93005; 97139; 99284; J0360; J0461; J0696; J1100; J1885; J2001; J2250; J2270; J2405; J2543; J3370; J3480; J7030; J7120; Q9967

== ENCOUNTER → 2019-04-21 | Outpatient (CLI) | payer MEDICARE ==
[~2019-04-21] MED LIST changes: +LEVAQUIN500 MG PO; +MIRALAX17 GM PO; +NICODERM CQ1 EAC1 TOP; +PROTONIX40 MG PO
--- NOTE | 2019-04-21 16:08 | Diagnostic Imaging Report ---
EXAMINATION: SP LUMBAR, COMPLETE MIN 4VW INDICATION: Back pain COMPARISON: None FINDINGS: Mild S-shaped curvature of the lumbar spine with levoconvex curvature of the upper lumbar spine and dextroconvex curvature of the lower lumbar spine. No compression fracture. Vertebral body heights are maintained. Grade 1 anterolisthesis at L4-5. Diffuse osteopenia and severe multilevel degenerative changes with disc space narrowing, osteophyte formation, and facet arthropathy. Nonobstructive bowel gas pattern. No free air. IMPRESSION: No compression fracture. Alignment abnormalities and severe multilevel degenerative changes as above. Signed by: Troy Ellington MD on 04/21/2019 4:05 PM
== END ==
LOC: RAD 12:10
PROVIDERS: ATTEND Family Medicine
DX: M54.5 Low back pain (principal)
CPT/HCPCS: 72110

== ENCOUNTER → 2019-09-19 | Emergency (ER) | payer MEDICARE ==
[~2019-09-19] VITALS: Ht 162.6 cm; Wt 88.5 kg
[~2019-09-19] MED LIST changes: +KETOROLAC TROMETHAMINE 60 MG/2 ML VIAL IM ONE; +LIDOCAINE JELLY 2% 10ML URO-JET ONE; +LIDOCAINE JELLY 2% 10ML URO-JET TOP STA
--- OUTSIDE RECORDS SUMMARY | 2019-09-19 23:21 | XMS REPORT ---
Author Author [facility] Address Unknown Phone Unavailable Care Team Providers Care Sword Swallower Name Role Phone KATERINA HERNANDEZ Unavailable Unavailable HANNAH CRYSTAL Unavailable Unavailable Problems This patient has no known problems. Allergies, Adverse Reactions, Alerts This patient has no known allergies or adverse reactions. Medications This patient has no known medications. Results Test Description Test Time Test Comments Text Results Atomic Results Result Comments SP LUMBAR, COMPLETE MIN 4VW 2019-04-21 16:03:00 [place] [address] Patient Name: CODIE SRINIVASAN MR #: [id number] : 1945 Age/Sex: 74/M Req #: [id number] Adm Physician: Ordered by: MARY MARLOW, KATERINA Krause MD Report #: [id number] Location: [facility] Room/Bed: Procedure: [id number] DX/SP LUMBAR, COMPLETE MIN 4VW Exam Date: 04/21/19 Exam Time: 1315 REPORT STATUS: Signed EXAMINATION: SP LUMBAR, COMPLETE MIN 4VW INDICATION: Back pain COMPARISON: None FINDINGS: Mild S- shaped curvature of the lumbar spine with levoconvex curvature of the upper lumbar spine and dextroconvex curvature of the lower lumbar spine. No compression fracture. Vertebral body heights are maintained. Grade 1 anterolisthesis at L4-5. Diffuse osteopenia and severe multilevel degenerative changes with disc space narrowing, osteophyte formation, and facet arthropathy. Nonobstructive bowel gas pattern. No free air. IMPRESSION: No compression fracture. Alignment abnormalities and severe multilevel degenerative changes as above. Signed by: Rosana Ibrahim MD on 04/21/2019 4:05 PM Dictated By: ROSANA IBRAHIM MD 1605 Transcribed By: ENRICO on 04/21/19 1605 COPY TO: KATERINA HERNANDEZ CHEST SINGLE (NOT PORTABLE) [place] [address] Patient Name: CODIE MEYER MR #: [id number] : 1945 Age/Sex: 72/M Req #: [id number] Adm Physician: HANNAH CRYSTAL MD Ordered by: ODELL GRUBER MD Report #: [id number] Location: MED/SURG Room/Bed: [facility] Procedure: [id number] DX/CHEST SINGLE (NOT PORTABLE) Exam Date: 06/13/17 Exam Time: 0916 REPORT STATUS: Signed EXAM: CHEST SINGLE (NOT PORTABLE) DATE: 06/13/2017 8:16 AM INDICATION: Fever COMPARISON: 06/05/2017 FINDINGS: Heart is accentuated by low lung volumes. There is elevation the left hemidiaphragm with left basilar airspace opacity. No pneumothorax. Probable tiny granuloma left upper lobe. NG tube removed. IMPRESSION: Left basilar atelectasis versus pneumonia. Signed by: Dr. Luis Leon MD on 06/13/2017 9:43 AM Dictated By: LUIS LEON MD 0943 Transcribed By: ENRICO on 06/13/17 0943 COPY TO: ODELL GRUBER MD CHEST SINGLE (PORTABLE) [place] [address] Patient Name: CODIE MEYER MR #: [id number] : 1945 Age/Sex: 72/M Req #: [id number] Adm Physician: HANNAH CRYSTAL MD Ordered by: CHRISTOPHE GRUBER MD Report #: [id number] Location: MED/SURG Room/Bed: [facility] Procedure: [id number] DX/CHEST SINGLE (PORTABLE) Exam Date: Exam Time: REPORT STATUS: Signed EXAMINATION: Chest, CHEST SINGLE (PORTABLE) INDICATION: Chest pain COMPARISON: Abdominal series with PA chest 06/05/2017 FINDINGS: LINES: Enteric feeding catheter is present with the tip coiled within the gastric body. Heart: Normal cardiac silhouette. Vascular: The pulmonary vasculature is within normal limits. Atherosclerotic calcifications of the aortic arch. Mediastinum: No mediastinal, hilar, or axillary mass or lymphadenopathy. Lungs: No parenchymal mass. No focal consolidation. Bibasilar atelectasis. Pleura: No pleural effusion. No pneumothorax. Bones: No acute osseous abnormality. Degenerative changes of the thoracic spine. Soft tissues: Normal. Impression: No acute radiographic abnormality. Signed by: Dr. Marah Stubbs M.D. on 06/05/2017 10:33 AM Dictated By: MARAH STUBBS MD 1033 Transcribed By: ENRICO on 06/05/17 1033 COPY TO: CHRISTOPHE GRUBER MD CT ABDOMEN/PELVIS W [place] [address] Patient Name: CODIE MEYER MR #: [id number] : 1945 Age/Sex: 72/M [facility] #: [id number] Req #: [id number] [facility] Physician: Ordered by: DARSHAN SHAHID MD Report #: [id number] Location: ER Room/Bed: Procedure: [id number] CT/CT ABDOMEN/PELVIS W Exam Date: 06/05/17 Exam Time: 6 REPORT STATUS: Signed EXAM: CT Abdomen and Pelvis WITH contrast INDICATION: Bowel obstruction COMPARISON: 06/01/2017 TECHNIQUE: Abdomen and pelvis were scanned utilizing a multidetector helical scanner from the lung base to the pubic symphysis after administration of IV contrast. Coronal and sagittal reformations were obtained. Routine protocol was performed. Scan was performed when during portal venous phase. IV CONTRAST: 100 mL of Isovue-300 ORAL CONTRAST: Water RADIATION DOSE: Total DLP: 680.51 mGy*cm Estimated effective dose: (DLP x 0.015 x size factor) mSv COMPLICATIONS: None FINDINGS: LINES and TUBES: None. LOWER THORAX: Unremarkable HEPATOBILIARY: No focal hepatic lesions. No biliary ductal dilation. GALLBLADDER: No radio-opaque stones or sludge. No wall thickening. SPLEEN: No splenomegaly. PANCREAS: No focal masses or ductal dilatation. ADRENALS: No adrenal nodules KIDNEYS/URETERS: Kidneys enhance symmetrically. No hydronephrosis. No cystic or solid mass lesions. No stones. GI TRACT: Multiple small bowel loops are dilated in the center of the abdomen with decompressed bowel proximal and distally concerning for closed loop small bowel obstruction. The largest loop of bowel measures 7 cm in diameter. Appendix is normal. Again, few calcific densities are visualized within the dilated small bowel loops in the left lower quadrant. PELVIC ORGANS/BLADDER: Unremarkable. LYMPH NODES: No lymphadenopathy. VESSELS: There is moderate atherosclerotic disease in the aorta and major arterial branches. PERITONEUM / RETROPERITONEUM: Mesenteric fluid adjacent to dilated small bowel loops suggest some degree of vascular involvement BONES: Unremarkable. SOFT TISSUES: Unremarkable. IMPRESSION: 1. Findings on today's exam are suspicious for closed loop small bowel obstruction demonstrating a segment of small bowel that is dilated with areas of decompressed small bowel proximal and distal to it. Signed by: Dr. Manjeet Ferraro M.D. on 06/05/2017 4:08 AM Dictated By: MANJEET MCCANN MD 7 Transcribed By: ENRICO on 06/05/17407 COPY TO: DARSHAN SHAHID MD ABDOMEN ACUTE SERIES W/PA CXR [place] [address] Patient Name: CODIE MEYER MR #: [id number] : 1945 Age/Sex: 72/M Req #: [id number] Adm Physician: Ordered by: DARSHAN SHAHID MD Report #: [id number] Location: ER Room/Bed: Procedure: [id number] DX/ABDOMEN ACUTE SERIES W/PA CXR Exam Date: 06/05/17 Exam Time: 0015 REPORT STATUS: Signed EXAM: ABDOMEN ACUTE SERIES W/PA CXR DATE: 06/04/2017 11:47 PM Time stamp on exam: INDICATION: Abdominal pain, history of small bowel obstruction COMPARISON: CT of the abdomen 06/01/2017 FINDINGS: LINES/TUBES: None BOWEL PATTERN: There is distention of the stomach with air-fluid levels on standing position. No evidence of small bowel or large bowel obstruction. SOFT TISSUES: Previously noted calcifications in the gut are still present and overlying the left iliac wing.. No mass effect. LUNGS: The lungs are clear. Minimal left lung base atelectasis with elevation of the left hemidiaphragm. No cardiac megaly, pneumothorax or pulmonary edema. Small left apical calcified granuloma. BONES: Degenerative changes of the thoracolumbar spine. IMPRESSION: Findings are suspicious for proximal small bowel obstruction or gastric outlet obstruction. Given the prior imaging demonstrating terminal ileum dilatation, constellation of findings may represent persistent ileus and distal obstruction. CT of the abdomen and pelvis with IV contrast is recommended Signed by: Dr. Manjeet Ferraro M.D. on 06/05/2017 12:36 AM Dictated By: MANJEET SPARROW MD Transcribed By: ENRICO on 06/05/1735 COPY TO: DARSHAN SHAHID MD ABDOMEN COMP INCL UPR or DECUB [place] [address] Patient Name: CODIE MEYER MR #: [id number] : 1945 Age/Sex: 72/M Req #: [id number] Adm Physician: HANNAH CRYSTAL MD Ordered by: FELY RICHTER MD Report #: [id number] Location: MED/SURG2 Room/Bed: [facility] Procedure: [id number] DX/ABDOMEN COMP INCL UPR or DECUB Exam Date: 06/02/17 Exam Time: 0635 REPORT STATUS: Signed EXAM: ABDOMEN COMP INCL UPR or DECUB DATE: 06/02/2017 6:00 AM Time stamp on exam: 6:26 AM INDICATION: Small bowel obstruction COMPARISON: 06/01/2017 CT of the abdomen and pelvis FINDINGS: LINES/TUBES: NG tube visualized with tip overlying the left upper quadrant. BOWEL PATTERN: No evidence for obstruction. Oral contrast opacifies the proximal colon SOFT TISSUES: No abnormal calcifications. No mass effect. LUNG BASES: Not included BONES: Degenerative changes of the thoracolumbar spine IMPRESSION: Nonobstructive bowel gas pattern. Signed by: Dr. Manjeet Ferraro M.D. on 06/02/2017 6:54 AM Dictated By: MANJEET SPARROW MD 3 Transcribed By: ENRICO on 06/02/17653 COPY TO: FELY RICHTER MD CT ABDOMEN/PELVIS W [place] [address] Patient Name: CODIE MEYER MR #: [id number] : 1945 Age/Sex: 72/M Req #: [id number] Adm Physician: Ordered by: FELY RICHTER MD Report #: [id number] Location: ER Room/Bed: Procedure: [id number] CT/CT ABDOMEN/PELVIS W Exam Date: 06/01/17 Exam Time: 0120 REPORT STATUS: Signed EXAM: CT Abdomen and Pelvis WITH contrast INDICATION: Abdominal pain, small bowel obstruction COMPARISON: 05/21/2017 and 05/22/2017 TECHNIQUE: Abdomen and pelvis were scanned utilizing a multidetector helical scanner from the lung base to the pubic symphysis after administration of IV contrast. Coronal and sagittal reformations were obtained. Routine protocol was performed. Scan was performed when during portal venous phase. IV CONTRAST: 100 mL of Isovue-370 ORAL CONTRAST: Gastrografin RADIATION DOSE: Total DLP: 653.34 mGy*cm Estimated effective dose: (DLP x 0.015 x size factor) mSv COMPLICATIONS: None FINDINGS: LINES and TUBES: None. LOWER THORAX: Unremarkable HEPATOBILIARY: No focal hepatic lesions. No biliary ductal dilation. GALLBLADDER: No radio-opaque stones or sludge. No wall thickening. SPLEEN: No splenomegaly. PANCREAS: No focal masses or ductal dilatation. ADRENALS: No adrenal nodules KIDNEYS/URETERS: Kidneys enhance symmetrically. No hydronephrosis. No cystic or solid mass lesions. No stones. GI TRACT: There is distention of the stomach, and small bowel, part ially opacified by oral contrast. There is a transition point at the terminal ileum best seen on coronal image 51. Several peripherally calcified, centrally lucent stones noted in the GI tract without evidence of typical stone ileus. The calcifications measure between 1.6 and 1.1 cm best seen in the left small bowel. The colon is decompressed. Appendix is normal. PELVIC ORGANS/BLADDER: Unremarkable. LYMPH NODES: No lymphadenopathy. VESSELS: There is mild atherosclerotic disease in the aorta and major arterial branches. PERITONEUM / RETROPERITONEUM: There is moderate of amount of free pelvic and abdominal fluid. BONES: Unremarkable. SOFT TISSUES: Unremarkable. IMPRESSION: 1. Findings are compatible with small bowel obstruction and ileus within the right lower quadrant. Correlate for prior surgical history. Adhesions is suspected. 2. Multiple calcific densities in the small bowel are indeterminate but suspicious of biliary or igin. Signed by: Dr. Manjeet Ferraro M.D. on 06/01/2017 2:05 AM Dictated By: MANJEET SPARROW MD 4 Transcribed By: ENRICO on 06/01/17204 COPY TO: FELY RICHTER MD CHEST 2 VIEWS [place] [address] Patient Name: CODIE MEYER MR #: [id number] : 1945 Age/Sex: 72/M Req #: [id number] Adm Physician: Ordered by: FELY RICHTER MD Report #: [id number] Location: ER Room/Bed: Procedure: [id number] DX/CHEST 2 VIEWS Exam Date: 05/31/17 Exam Time: 2304 REPORT STATUS: Signed EXAMINATION: CHEST 2 VIEWS INDICATION: Abdominal pain. COMPARISON: 05/22/2017 and 05/21/2017 FINDINGS: TUBES and LINES: None. LUNGS: Lungs are not well inflated. There are bibasilar atelectasis. There is no evidence of pneumonia or pulmonary edema. PLEURA: No pleural effusion or pneumothorax. HEART AND MEDIASTINUM: The cardiomediastinal silhouette is remarkable for elevation of the left hemidiaphragm with prominent air-fluid level in the stomach fundus.. BONES AND SOFT TISSUES: No acute osseous lesion. Soft tissues are unremarkable. UPPER ABDOMEN: No free air under the diaphragm. IMPRESSION: No acute thoracic abnormality. Signed by: Dr. Manjeet Ferraro M.D. on 05/31/2017 11:43 PM Dictated By: MANJEET SPARROW MD 3631 Transcribed By: ENRICO on 05/31/17 6577 COPY TO: FELY RICHTER MD ABDOMEN COMP INCL UPR or DECUB [place] [address] Patient Name: CODIE MEYER MR #: [id number] : 1945 Age/Sex: 72/M Req #: [id number] Adm Physician: Ordered by: FELY RICHTER MD Report #: [id number] Location: ER Room/Bed: Procedure: [id number] DX/ABDOMEN COMP INCL UPR or DECUB Exam Date: 05/31/17 Exam Time: 2304 REPORT STATUS: Signed EXAM: ABDOMEN COMP INCL UPR or DECUB DATE: 05/31/2017 9:47 PM Time stamp on exam: 2304 hours INDICATION: Abdominal pain COMPARISON: 05/22/2017 and 05/21/2017 FINDINGS: LINES/TUBES: None BOWEL PATTERN: Multiple small bowel loops appear dilated in the upper abdomen region 6 cm in diameter. The stomach is distended with air and fluid. The lower abdomen does not demonstrate distended hollow viscus SOFT TISSUES: No abnormal calcifications. No mass effect. LUNG BASES: Not included BONES: Degenerative changes of the lumbar spine. IMPRESSION: Findings are compatible with progressive small bowel obstruction. Signed by: Dr. Manjeet Ferraro M.D. on 05/31/2017 11:45 PM Dictated By: MANJEET SPARROW MD 44 Transcribed By: ENRICO on 05/31/172344 COPY TO: FELY RICHTER MD ABDOMEN ACUTE SERIES W/PA CXR [place] [address] Patient Name: CODIE MEYER MR #: [id number] : 1945 Age/Sex: 72/M Req #: [id number] Adm Physician: HANNAH CRYSTAL MD Ordered by: CHRISTOPHE GRUBER MD Report #: [id number] Location: MED/SURG Room/Bed: [facility] Procedure: [id number] DX/ABDOMEN ACUTE SERIES W/PA CXR Exam Date: 05/22/17 Exam Time: 0750 REPORT STATUS: Signed EXAM: ABDOMEN ACUTE SERIES W/PA CXR DATE: 05/22/2017 8:00 AM INDICATION: Small bowel obstruction COMPARISON: None FINDINGS: Chest: NG tube present with side holes below the GE junction. There is prominence of the aorta. Elevation of the left hemidiaphragm and patchy opacities in the left lung base present. There is no pneumothorax. No obvious pneumoperitoneum identified. Dilated loops of small bowel present measuring up to 51 mm in the left upper quadrant. Degenerative changes in the spine and hips present. IMPRESSION: Dilated loops of small bowel consistent with small bowel obstruction, corresponding with 05/21/2017 CT. Patchy opacity left lung base could represent atelectasis or pneumonia. Signed by: Dr. Luis Leon MD on 05/22/2017 9:29 AM Dictated By: LUIS LEON MD 8 Transcribed By: ENRICO on 05/22/17928 COPY TO: CHRISTOPHE GRUBER MD CHEST [facility] (PORTABLE) [place] [address] Patient Name: CODIE SRINIVASAN MR #: [id number] : 1945 Age/Sex: 72/M Req #: [id number] Adm Physician: Ordered by: FELY RICHTER MD Report #: [id number] Location: ER Room/Bed: Procedure: [id number] DX/CHEST SINGLE (PORTABLE) Exam Date: 05/21/17 Exam Time: 0210 REPORT STATUS: Signed EXAM: CHEST SINGLE (PORTABLE), AP 1 view DATE: 05/21/2017 1:50 AM Time stamp on exam: 0159 hours INDICATION: Abdominal pain, shortness of breath COMPARISON: None FINDINGS: LINES/TUBES: None LUNGS: No consolidations or edema. Left lower lobe atelectasis/scarring. PLEURA: No effusions or pneumothorax. Nonspecific elevation of the left hemidiaphragm. HEART AND MEDIASTINUM: Normal size and contour. BONES AND SOFT TISSUES: No acute findings. IMPRESSION: Nonspecific elevation of the left hemidiaphragm. Left lower lobe atelectasis/scarring. Signed by: Dr. Jennifer Mason M.D. on 05/21/2017 2:31 AM Dictated By: JENNIFER MASON MD 0 Transcribed By: ENRICO on 05/21/17230 COPY TO: FELY RICHTER MD CT ABDOMEN/PELVIS W [place] [address] Patient Name: CODIE SRINIVASAN MR #: [id number] : 1945 Age/Sex: 72/M Req #: [id number] Adm Physician: Ordered by: FELY RICHTER MD Report #: [id number] Location: ER Room/Bed: Procedure: [id number] CT/CT ABDOMEN/PELVIS W Exam Date: Exam Time: REPORT STATUS: Signed EXAM: CT ABDOMEN AND PELVIS with IV CONTRAST DATE: 05/21/2017 1:50 AM Time stamp on Exam: 0322 hours INDICATION: Abdominal pain, diarrhea COMPARISON: None TECHNIQUE: The abdomen and pelvis were scanned using a multidetector helical scanner. Coronal and sagittal reformations were obtained. Routine protocol performed. IV Contrast: 100 cc Isovue-370 Oral Contrast: Gastrografin CTDIvol has been reviewed. It is below the limits set by the Radiation Protocol Committee (RPC). FINDINGS: LOWER THORAX: No consolidations LIVER: Scattered subcentimeter hypodensities that are too small to characterize BILIARY: The gallbladder is unremarkable. No ductal dilation. SPLEEN: No masses PANCREAS: No masses ADRENALS: Left adrenal gland nodule measuring 2 cm. Normal right adrenal gland. KIDNEYS: Symmetric perfusion. No enhancing masses. No hydronephrosis. Cortical cyst measuring 2 cm in the right kidney interpolar region. Subcentimeter cysts bilaterally. GI TRACT: The stomach is distended. Dilated loops of small bowel. Decompressed distal ileum. Normal appearance of the colon. Normal appendix. Nonspecific radiopaque densities in a small bowel loop, possibly undigested pills. VESSELS: Mild atherosclerotic changes without aneurysm. PERITONEUM/RETROPERITONEUM: No free air or fluid LYMPH NODES: No lymphadenopathy REPRODUCTIVE ORGANS: Unremarkable BLADDER: Unremarkable SOFT TISSUES: Unremarkable BONES: No suspicious bone lesions. IMPRESSION: Distal small bowel obstruction without transition point identified. Indeterminate 2 cm left adrenal gland nodule. If no priors are available for comparison, a nonemergent MRI or CT of the abdomen is recommended with and without IV contrast, adrenal mass protocol. Signed by: Dr. Jennifer Mason M.D. on 05/21/2017 3:53 AM Dictated By: JENNIFER MASON MD 2 Transcribed By: ENRICO on 05/21/17352 COPY TO: FELY RICHTER MD
[2019-09-19 23:45] LABS: CLARITY,URINE CLOUDY (CLEAR); COLOR,URINE YELLOW (YELLOW)
[2019-09-19 23:46] LABS: BILIRUBIN,URINE NEGATIVE (NEGATIVE); KETONES,URINE NEGATIVE (NEGATIVE); LEUKOCYTE ESTERASE ,URINE TRACE (NEGATIVE); NITRITE,URINE NEGATIVE (NEGATIVE); PROTEIN,URINE DIPSTICK NEGATIVE (NEGATIVE); URINE UROBILINOGEN 0.2 mg/dL (0.2 - 1)
[2019-09-20] LABS: BACTERIA,URINE FEW /HPF; EPITHELIAL CELLS,URINE FEW /LPF; RENAL EPITHELIAL CELLS,URINE FEW; TRANSITIONAL EPI CELLS,URINE FEW; WBC,URINE (MAN) >50 /HPF (0-5)
--- NOTE | 2019-09-20 00:20 | NUR ---
Paatient left ED to radiology for Abd CT scan. Urine output 300ml at giron bag.
--- NOTE | 2019-09-20 02:05 | Diagnostic Imaging Report ---
EXAM: CT Abdomen and Pelvis WITHOUT contrast INDICATION: Abdominal pain. COMPARISON: CT abdomen/pelvis 06/05/2017. TECHNIQUE: Abdomen and pelvis were scanned utilizing a multidetector helical scanner from the lung base to the pubic symphysis without administration of IV contrast. Absence of intravenous contrast decreases sensitivity for detection of focal lesions and vascular pathology. Coronal and sagittal reformations were obtained. Stone protocol is performed. IV CONTRAST: None. ORAL CONTRAST: None RADIATION DOSE: Total DLP: 724 mGy*cm Estimated effective dose: (DLP x 0.015 x size factor) mSv COMPLICATIONS: None FINDINGS: LINES and TUBES: Jade catheter terminates in the bladder. LOWER THORAX: Coronary atherosclerosis. HEPATOBILIARY: Diffuse hepatic steatosis. Right inferior hepatic lobe 1.1 cm cyst. No biliary ductal dilation. GALLBLADDER: No radio-opaque stones or sludge. No wall thickening. SPLEEN: No splenomegaly. PANCREAS: No focal masses or ductal dilatation. Fatty atrophy. ADRENALS: A 2.1 cm left adrenal hypodense nodule, consistent with adenoma (series 3, image 56; 6 HU). KIDNEYS/URETERS: No evidence of hydronephrosis or stone. Right renal cyst. Subcentimeter left renal hypodensity is too small to characterize, but likely represents a cyst. GI TRACT: No abnormal distention, wall thickening, or evidence of bowel obstruction. Appendix is not clearly identified. There is however no fat stranding or adenopathy in the right lower quadrant to suggest appendicitis. Status post interval partial resection of the small bowel with an anastomosis in the left lower abdomen. PELVIC ORGANS/BLADDER: Enlarged prostate measuring 5.3 cm. Jade catheter in the bladder. Air within the bladder, likely iatrogenic. Partially decompressed bladder. LYMPH NODES: No lymphadenopathy. VESSELS: There is moderate atherosclerotic disease in the aorta and major arterial branches. PERITONEUM / RETROPERITONEUM: No free air or fluid. BONES: No acute osseous abnormality. No suspicious lytic or blastic lesions. Degenerative disc changes in the visualized spine. SOFT TISSUES: Unremarkable. IMPRESSION: No evidence of nephrolithiasis. Prostatomegaly with Jade catheter in a decompressed bladder. Status post interval partial resection of the small bowel with an anastomosis in the left lower abdomen. No evidence of bowel obstruction. Diffuse hepatic steatosis. Signed by: Dr. Susanne Khan MD on 09/20/2019 2:01 AM
[2019-09-20 02:33] VITALS: BP 162/94
== END | disposition home or self-care (01) ==
LOC: ER 23:18
DX: R30.0 Dysuria (principal); R33.9 Retention of urine, unspecified; R10.9 Unspecified abdominal pain; N40.1 Benign prostatic hyperplasia with lower urinary tract symptoms; K76.0 Fatty (change of) liver, not elsewhere classified
CPT/HCPCS: 74176; 81001

== ENCOUNTER 2019-09-23 08:07 | Emergency (ER) | payer MEDICARE ==
[~2019-09-23] VITALS: Ht 162.6 cm; Wt 88.5 kg
[~2019-09-23 08:07] MED LIST changes: -KETOROLAC TROMETHAMINE 60 MG/2 ML VIAL IM ONE; -LIDOCAINE JELLY 2% 10ML URO-JET ONE; -LIDOCAINE JELLY 2% 10ML URO-JET TOP STA
[2019-09-23] MEDS ORDERED: SODIUM CHLORIDE 0.9% 1000ML 1,000 ML IV STA (08:24)
[2019-09-23] MEDS ORDERED: ONDANSETRON HCL INJ 2MG/ML 2ML 2 MG/ML VIAL IV STA (08:24)
[2019-09-23] MEDS ORDERED: MORPHINE SULFATE INJ 4 MG/ML INJ 1ML IV STA (08:24)
[2019-09-23] MEDS ORDERED: LIDOCAINE/PRILOCAINE 2.5-2.5% KIT TOP ONE (08:30)
[2019-09-23] MEDS ORDERED: CEFTRIAXONE SOD 1 GM/NS 50 ML 50 ML IV ONE (09:00)
[2019-09-23 09:08] LABS: BASOPHILS # (AUTO) 0.1 (0.0-0.1); BASOPHILS % 0.4 % (0.0-1.0); EOSINOPHILS # (AUTO) 0.1 (0.0-0.4); EOSINOPHILS % 0.6 % (0.0-6.0); HEMATOCRIT 36.2 % (38.2-49.6); HEMOGLOBIN 12.4 g/dL (14.0-18.0); LYMPHOCYTES # (AUTO) 0.9 (1.0-3.2); MEAN CORPUSCULAR HEMOGLOBIN 30.2 pg (28-32); MEAN CORPUSCULAR HGB CONC 34.3 g/dL (31-35); MEAN CORPUSCULAR VOLUME 88.3 fL (81-99); MONOCYTES # (AUTO) 1.4 (0.2-0.8); MONOCYTES % 12.3 % (4.4-11.3); NEUTROPHILS # (AUTO) 8.9 (2.1-6.9); NEUTROPHILS % 77.9 % (38.7-80.0); PLATELET COUNT 292 x10e3/uL (140-360); RED CELL DISTRIBUTION WIDTH 13.1 % (11.7-14.4)
[2019-09-23 09:17] LABS: CLARITY,URINE CLEAR (CLEAR); COLOR,URINE YELLOW (YELLOW)
[2019-09-23 09:18] LABS: BILIRUBIN,URINE NEGATIVE (NEGATIVE); KETONES,URINE 1+ (NEGATIVE); LEUKOCYTE ESTERASE ,URINE TRACE (NEGATIVE); NITRITE,URINE NEGATIVE (NEGATIVE); PROTEIN,URINE DIPSTICK NEGATIVE (NEGATIVE); URINE UROBILINOGEN 0.2 mg/dL (0.2 - 1)
[2019-09-23 09:24] LABS: ALANINE AMINOTRANSFERASE 36 IU/L (0-55); ALBUMIN 3.2 g/dL (3.5-5.0); ALBUMIN/GLOBULIN RATIO 0.9 (0.8-2.0); ALKALINE PHOSPHATASE 62 IU/L (40-150); ANION GAP 16.2 mmol/L (8-16); BLOOD UREA NITROGEN 18 mg/dL (7-26); BUN/CREATININE RATIO 19 (6-25); CALCIUM 9.1 mg/dL (8.4-10.2); CARBON DIOXIDE 24 mmol/L (22-29); CHLORIDE 96 mmol/L (98-107); CREATININE, SERUM 0.94 mg/dL (0.72-1.25); EST GLOMERULAR FILTRATION RATE > 60 ML/MIN (60-); GLUCOSE 138 mg/dL (74-118); POTASSIUM 3.2 mmol/L (3.5-5.1); SODIUM 133 mmol/L (136-145)
[2019-09-23 09:34] LABS: BACTERIA,URINE RARE /HPF; EPITHELIAL CELLS,URINE FEW /LPF
[2019-09-23 09:51] VITALS: BP 115/82
[2019-09-23] MEDS ORDERED: POTASSIUM CHLORIDE 20 MEQ TAB CR PO STA (10:22)
== END 2019-09-23 10:57 | disposition home or self-care (01) ==
LOC: ER 08:07
DX: Z46.6 Encounter for fitting and adjustment of urinary device (principal); N30.91 Cystitis, unspecified with hematuria; E87.6 Hypokalemia; K52.9 Noninfective gastroenteritis and colitis, unspecified; I10 Essential (primary) hypertension; K21.9 Gastro-esophageal reflux disease without esophagitis
CPT/HCPCS: 36415; 80053; 81001; 85025; 87040; 87086; 99284; J0696; J2270; J2405; J7030

== ENCOUNTER 2019-12-05 09:51 | Emergency (ER) | payer MEDICARE ==
[~2019-12-05] VITALS: Ht 162.6 cm; Wt 88.5 kg
[2019-12-05 10:34] VITALS: BP 174/98
[2019-12-05] MEDS ORDERED: IBUPROFEN 600 MG TAB PO STA (10:39)
[2019-12-05] MEDS ORDERED: ACETAMINOPHEN/CODEINE 300MG - 30MG TAB PO ONE (10:45)
[2019-12-05] MEDS ORDERED: CYCLOBENZAPRINE HCL 10 MG TAB PO ONE (10:45)
[2019-12-05] MEDS ORDERED: PREDNISONE 20 MG TAB PO ONE (10:45)
--- NOTE | 2019-12-05 11:00 | Emergency Department Note ---
History of Present Illnes History of Present Illness Chief Complaint: Back Pain History of Present Illness This is a 74 year old male . 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 Data Processing Required: No Onset (how long ago): hour(s) (2) Location: bilat lower back bact that radiates down legs Radiation: Reports extremity Severity: moderate Onset quality: gradual Duration (how long): hour(s) (2) Timing of current episode: constant Progression: unchanged Chronicity: recurrent Context: Denies recent illness, Denies recent surgery, Denies recent immobilization, Denies trauma/injury, Denies new medications Relieving factors: none Exacerbating factors: movement Treatments prior to arrival: none Past Medical/Family History Physician Review I have reviewed the patient's past medical and family history. Any updates have been documented here. Past Medical History Recent Fever: No Clinical Suspicion of Infectio: No New/Unexplained Change in Ment: No Past Medical History: Hypertension, GERD Other Medical History: SBO Past Surgical History: Back Surgery Other Surgery: "SOME TYPE OF INTESTINES SURGERY" PER PT BACK Social History Smoking Cessation: Former smoker Counseling Performed: No Alcohol Use: Social Any Illegal Drug Use: No TB Exposure/Symptoms: No Physically hurt or threatened: No Family History Family history of heart diseas: No Other Last Tetanus: UNK Any Pre-Existing Lines (PICC,: No Is patient up to date on immun: Yes Review of Systems Review of Systems Constitutional: Reports no symptoms EENTM: Reports no symptoms Cardiovascular: Reports no symptoms Respiratory: Reports no symptoms Gastrointestinal: Reports no symptoms Genitourinary: Reports no symptoms Musculoskeletal: Reports muscle pain Integumentary: Reports no symptoms Neurological: Reports no symptoms Physical Exam Related Data Allergies: Coded Allergies: No Known Allergies (Unverified , 01/04/17) Triage Vital Signs Vital Signs Date Time Temp Pulse Resp B/P (MAP) Pulse Ox O2 Delivery O2 Flow Rate FiO2 12/05/19 10:30 99.6 68 18 174/98 100 Room Air Vital signs reviewed: Yes Physical Exam CONSTITUTIONAL Constitutional: Present well-developed, Present well-nourished, Present obese HENT HENT: Present normocephalic, Present atraumatic EYES Eyes: Reports PERRL, Reports conjunctivae normal NECK Neck: Present ROM normal, Present supple PULMONARY Pulmonary: Present effort normal, Present breath sounds normal CARDIOVASCULAR Cardiovascular: Present regular rhythm GASTROINTESTINAL Abdominal: Present soft, Present nontender GENITOURINARY SKIN Skin: Present warm, Present dry MUSCULOSKELETAL Musculoskeletal: Present tenderness (over SI joint trena. right pain r/t lower thigh and left SI pain r/t left ankle) NEUROLOGICAL Neurological: Present alert, Present oriented x 3, Present no gross motor or sensory deficits PSYCHOLOGICAL Psychological: Present mood/affect normal Assessment & Plan Medical Decision Making MDM NO SOB,NO CP or DIZZINESS. NO HOMENS OR CORDS. no bowel or bladder issues, denies trauma Sent home with flexiril, motrin and t3 Reassessment Reassessment time: 10:57 Assessment & Plan Final Impression: (1) Sciatic leg pain (2) Sciatica Depart Disposition: HOME, SELF-CARE Last Vital Signs Date Time Temp Pulse Resp B/P (MAP) Pulse Ox O2 Delivery O2 Flow Rate FiO2 12/05/19 10:34 68 18 100 12/05/19 10:30 99.6 174/98 Room Air Home Meds Active Scripts Polyethylene Glycol 3350 (MIRALAX) 17 Gm Powd.pack, 17 G PO DAILY PRN for CONST IPATION for 30 Days Prov:HANNAH CRYSTAL MD 06/15/17 Levofloxacin (LEVAQUIN) 500 Mg Tablet, 500 MG PO DAILY for 7 Days Prov:HANNAH CRYSTAL MD 06/15/17 Metronidazole (FLAGYL) 500 Mg Tablet, 500 MG PO TID for 7 Days Prov:HANNAH CRYSTAL MD 06/15/17 Pantoprazole Sodium (PROTONIX) 40 Mg Suspdr.pkt, 40 MG PO DAILY for 30 Days Prov:HANNAH CRYSTAL MD 06/15/17 Nicotine (NICODERM CQ) 1 Each Patch.td24, 14 MG TOP DAILY for 30 Days Prov:HANNAH CRYSTAL MD 06/15/17 Docusate Sodium (COLACE) 100 Mg Cap, 100 MG PO Q12H for 30 Days, #30 CAP Prov:HANNAH CRYSTAL MD 06/04/17 Sennosides (SENNOSIDES) 8.6 Mg Tablet, 8.6 MG PO Q12H for 30 Days Prov:HANNAH CRYSTAL MD 06/04/17 [Insulin Detemir] 100 UNIT/ML PEN No Conflict Check, 8 UNIT SQ HS for 30 Days Prov:HANNAH CRYSTAL MD 05/23/17 Medications in the ED Cyclobenzaprine HCl 10 mg ONCE ONCE PO ; Start 12/05/19 at 10:45; Stop 12/05/19 at 10:46; Status DC Ibuprofen 600 mg ONCE STAT PO ; Start 12/05/19 at 10:39; Stop 12/05/19 at 10:43; Status DC Acetaminophen/ Codeine Phosphate 1 ea NOW ONCE PO ; Start 12/05/19 at 10:45; Stop 12/05/19 at 10:46; Status DC Prednisone 40 mg ONCE ONCE PO ; Start 12/05/19 at 10:45; Stop 12/05/19 at 10:46; Status DC KATHY RESENDIZ Dec 05, 2019 11:00
== END 2019-12-05 11:25 | disposition home or self-care (01) ==
LOC: ER 11:03
DX: M54.32 Sciatica, left side (principal); M54.31 Sciatica, right side; I10 Essential (primary) hypertension; K21.9 Gastro-esophageal reflux disease without esophagitis; Z87.891 Personal history of nicotine dependence; Z87.19 Personal history of other diseases of the digestive system
CPT/HCPCS: 99283; J7512

== ENCOUNTER 2022-10-13 21:15 | Emergency (ER) | payer MEDICARE ==
[~2022-10-13] VITALS: Ht 162.6 cm; Wt 88.5 kg
[2022-10-13 21:44] LABS: BASOPHILS # (AUTO) 0.1 (0.0-0.1); BASOPHILS % 0.7 % (0.0-1.0); EOSINOPHILS # (AUTO) 0.3 (0.0-0.4); EOSINOPHILS % 3.9 % (0.0-6.0); HEMOGLOBIN 13.7 g/dL (14.0-18.0); LYMPHOCYTES # (AUTO) 2.3 (1.0-3.2); LYMPHOCYTES % 32.9 % (18.0-39.1); MEAN CORPUSCULAR HEMOGLOBIN 29.8 pg (28-32); MEAN CORPUSCULAR HGB CONC 32.6 g/dL (31-35); MEAN CORPUSCULAR VOLUME 91.3 fL (81-99); MONOCYTES # (AUTO) 0.8 (0.2-0.8); MONOCYTES % 10.8 % (4.4-11.3); NEUTROPHILS # (AUTO) 3.6 (2.1-6.9); NEUTROPHILS % 51.6 % (38.7-80.0); PLATELET COUNT 190 x10e3/uL (140-360); RED CELL DISTRIBUTION WIDTH 13.9 % (11.7-14.4)
[2022-10-13 21:58] LABS: ALBUMIN 3.8 g/dL (3.5-5.0); ALBUMIN/GLOBULIN RATIO 1.1 (0.8-2.0); ANION GAP 12.9 mmol/L (8-16); CALCIUM 9.1 mg/dL (8.4-10.2); CREATININE, SERUM 0.8 mg/dL (0.72-1.25); POTASSIUM 3.9 mmol/L (3.5-5.1)
[2022-10-13 22:04] LABS: CREATINE KINASE MB 7.2 ng/mL (0-5.0)
[2022-10-13] MEDS ORDERED: Morphine 4mg INJECTION 4 MG/ML INJ IV STA (22:40)
[2022-10-13] MEDS ORDERED: ONDANSETRON HCL INJ 2MG/ML 2ML 2 MG/ML VIAL IV STA (22:40)
[2022-10-13] MEDS ORDERED: IOPAMIDOL 370 MG/ML 100 ML INFUS..BTL INJ ONE (23:12)
[2022-10-13 23:14] LABS: AMPHETAMINES SCREEN,URINE NEGATIVE (NEGATIVE); BENZODIAZEPINES SCREEN,URINE NEGATIVE (NEGATIVE); PHENCYCLIDINE SCREEN,URINE NEGATIVE (NEGATIVE)
[2022-10-14] MEDS ORDERED: ULTRAM 50MG50 MG PO (00:19)
[2022-10-14 00:44] VITALS: BP 152/92; O2SAT 97
== END 2022-10-14 00:46 | disposition home or self-care (01) ==
LOC: ER 21:22
DX: M48.02 Spinal stenosis, cervical region (principal); R06.02 Shortness of breath; R91.8 Other nonspecific abnormal finding of lung field; I10 Essential (primary) hypertension; E11.9 Type 2 diabetes mellitus without complications; K21.9 Gastro-esophageal reflux disease without esophagitis
CPT/HCPCS: 36415; 71045; 71260; 72125; 80053; 80307; 82550; 82553; 83690; 83880; 84484; 85025; 85379; 93005; 99284; J2270; J2405; Q9967